=== PATIENT | female | born 1955 | race Caucasian/White ===

== ENCOUNTER 2024-04-16 09:19 | Outpatient (AMB) | payer MEDICARE, SELFPAY ==
--- NOTE | 2024-04-16 09:22 | A.OFFPC_ITS ---
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 Required: No Allergies morphine Allergy (Severe, Verified 04/16/24 10:17) Itching Medication List - Last Reconciled 04/16/24 by Radha Cardona, [facility]- apixaban (Eliquis) 5 mg PO BID CPAP (CPAP Machine/Device) As directed cyclobenzaprine 5 mg PO TID PRN zolpidem ER (Ambien CR) 12.5 mg PO BEDTIME PRN Tobacco use date assessed: 04/16/24 Dental Screening Dental Screen Date: 04/16/24 Did you have a dental visit in the last 12 months?: Yes Did you have a dental problem in the last 6 months where you did not have access to dental care?: No Was dental information given to patient?: Patient has dentist HPI HPI Comments History of Present Illness Details 58 y/o F with afib with secondary hyperc oaguable disorder, hx of pericarditis, chronic low back pain, JESUS on CPAP, insomnia, caregiver role strain, normal pressure glaucoma , diverticulosis, obesity s/p rudolph, gastric bypass, kidney stone, status post D&C family hx: mom with htn, dad cvd and etoh, pgm htn, pgf hld, sibling cvd Social: to , DD; moved from [place] to live near [facility] and grandchildren; 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 No records avail. Moved from [place]. She has a known history of sleep apnea, which requires CPAP management; however, her account is currently inactive. She experienced a past episode of pericarditis, during which atrial fibrillation was diagnosed; the cause of pericarditis remains unknown. Her atrial fibrillation presents intermittently, with episodes of palpitations, which do not always coincide with appointments or require an event monitor. She has normal pressure glaucoma and requires an ophthalmology referral. In her medical history, she was diagnosed with uterine cancer around 5025-3519 following recurrent episodes of bleeding during menopause, leading to a hysterectomy. Post-operative pathology confirmed a very early stage of uterine cancer, but post-treatment with the oncologist indicated no further cancer m anagement was deemed necessary. She experienced type 2 diabetes that subsequently resolved following gastric bypass surgery. Her mental health is characterized by chronic depression and anxiety, ex acerbated by recent stressors, including relocating and caring for her partner with dementia. Despite these challenges, she has periods of high anxiety but denies hopelessness or suicidal ideation. Her sleep is poor without the use of Ambien. Additionally, she recently experienced acute back pain, which she managed with medication. 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 - Family Status: Lives with her partner; actively caring for her partner with dementia. History of extensive caregiving for family members. - Substance Use: Minimal alcohol use, dr kwan approximately once a month. - Housing: Recently relocated; currently living with her daughter due to financial constraints. Exam Awake alert NAD RRR LS CTAB BLE no edema, skin intact, hairless Mood and affect appropriate Discussion Notes I discussed with the patient her current medical conditions and the need for ongoing management. We talked about her atrial fibrillation and the importance of a cardiology referral to the team at [facility]. Additionally, I explained the need for ophthalmology follow-up for her normal pressure glaucoma, with a referral to [facility] provided. The need for CPAP management was addressed, and a plan to reactivate her [place] account was initiated. We discussed her mental health, noting her moderate anxiety, and the pressures of caregiving. I highlighted the support available through the [employer] and encouraged her to seek caregiver support. We reviewed her recent back pain experience and the potential need for spine evaluation should symptoms persist or worsen. The conversation included her history of uterine cancer and resolved diabetes, aiming to maintain her health status through routine lab screenings and follow-ups. Patient Instructions - Follow up with cardiology at [facility] for atrial fibrillation management. - Contact [facility] for an ophth almology appointment regarding glaucoma. - Re-establish CPAP management account w skylar Floyd and proceed with acquiring necessary equipment. - Explore available caregiver support re sources through the [employer]. - Monitor back pain and seek further della luation if symptoms worsen. - Follow up on routine labs and return f or any abnormal results. Plan - Management of Atrial Fibrillation: Ref erral to cardiology for comprehensive management and potential further investigation or treatment options. - Management of Glaucoma: Referral to op hthalmology for ongoing assessment and treatment. - Sleep Apnea: Apply for CPAP account re activation with [employer] and ensure access to necessary equipment. - Depression and Anxiety: Encouragement to seek caregiver support through available associations. Monitor mental health status and consider counseling if anxiety and depression symptoms persist. - Blood Work: Routine lab work to establ kaushik a current baseline of health for further management decisions. - Follow-up arrangement for continuity o f care and address any emerging health concerns by the next scheduled appointment. Patient was informed and verbally consented to the use of an ambient scribe for clinic note documentation during this visit. Total time spent caring for the patient today was 60 minutes. This includes time spent before the visit reviewing the chart, time spent during the visit, and time spent after the visit on documentation, reviewing laboratory results, diagnostic imaging, medications, performing a medically necessary evaluation, counseling on diagnoses, care coordination, ordering appropriate tests, ordering appropriate medications, review of tests performed by other providers, reporting test results with the patient, communication with other healthcare providers. [facility] Medical History (Updated 04/16/24 @ 17:13 by BALA Roca-LIZBETH) Lower back pain Sleep apnea Menopause Kidney stones Afib Uterine cancer Surgical History (Updated 04/16/24 @ 10:21 by BALA Roca-LIZBETH) History of bariatric surgery History of hysterectomy Family History (Updated 04/16/24 @ 09:32 by Jerry Dejesus MA) Father Substance abuse Cardiovascular disease Paternal Grandfather Diabetes Mother Hypertension Paternal Grandmother Hypertension Social History (Updated 04/16/24 @ 09:30 by Jerry Dejesus MA) Household Members: Family Housing: Apartment Are you a primary director long term care to a significant other at home: No Do you presently have visiting nurse or other home services: No Alcohol intake: current Alcohol intake frequency: a few times a month Patient Tobacco Use Status: Never used Tobacco e-Cigarette/Vaping Use: Never Used Second Hand Smoke Exposure: No Current occupational status: retired Cognitive needs: No Hearing needs: No Vision needs: Yes (wear glasses) Questionnaire PHQ-9 Over the last 2 weeks, how often have you been bothered by any of the following problems? 1. Little interest or pleasure in doing things: more than half the days 2. Feeling down, depressed, or hopeless: not at all 3. Trouble falling or staying asleep, or sleeping too much: nearly every day 4. Feeling tired or having little energy: nearly every day 5. Poor appetite or overeating: not at all 6. Feeling bad about yourself - or that you are a failure or have let yourself or your family down: several days 7. Trouble concentrating on things, such as reading the newspaper or watching t elevision: not at all 8. Moving or speaking so slowly that other people could have noticed. Or the opposite - being so fidgety or restless that you have been moving around a lot more than usual: not at all 9. Thoughts that you would be better off or of hurting yourself in some way: not at all Total score: 9 Depression Screening Interpretation: Positive Depression Screening Follow-up: Existing condition Depression Screening Done: Yes 57699 - PHQ-9 Billing: Yes Source: Developed by Drs. Julito Chen, Prachi Lara, Alexey Lowry and colleagues, with an educational stas from [employer]. Thrive Questionnaire Date Thrive assessed: 04/16/24 I am a: Patient What is your living situation today?: I have a steady place to live Within the past 12 months, did the food you bought not last and you didn't have the money to get more?: Never true Within the past 12 months, did you worry whether your food would run out before you got money to buy more?: Never true Do you have trouble paying for medicines?: No Do you have trouble getting transportation to medical appointments?: No Do you have trouble paying your heating and electricity bill?: No Do you have trouble taking care of your child, family member or friend?: Yes Do you have trouble with day-to-day activities such as bathing, preparing meals, shopping, managing finances, etc.?: No Are you currently unemployed and looking for a job?: No Are you interested in more education?: No Please select the resources that you would like help with: Care for elder or disabled Currently or been in a relationship where the following occur: No concerns reported THRIVE Score: 0 AUDIT C Alcohol Use Questionnaire (AUDIT-C) 1. How often do you have a drink containing alcohol?: Monthly or less 2. How many drinks containing alcohol do you have on a typical day when you are drinking?: 1 or 2 3. How often do you have six or more drinks on one occasion?: Never Total Score: 1 Score Reviewed/Action Taken: Yes GORDON-7 AMB Questionnaire GORDON-7 Date GORDON - 7 assessed: 04/16/24 Feeling nervous, anxious, or on edge: 2 = More than half the days Not being able to stop or control worryin = More than half the days Worrying too much about different things: 2 = More than half the days Trouble relaxin = Several days Being so restless that it is hard to sit still: 0 = Not at all Becoming easily annoyed or irritable: 2 = More than half the days Feeling afraid as if something awful might happen: 1 = Several days Total GORDON-7 score (0-4 normal; 5-9 mild; 10-14 moderate; 15-21 severe): 10 Source: Developed by Drs. Julito Chen, Prachi Lara, Alexey Lowry and colleagues, with an educational stas from [employer]. GORDON-7 Assessment Billing GORDON-7 Assessment Tool: GORDON-7 Assessment 50528 Physical exam (Primary Care) Vital Signs: Last Vital Signs Temp 97.1 F 04/16/24 09:34 Pulse 82 04/16/24 09:34 Resp 12 04/16/24 09:34 BP 122/70 04/16/24 09:34 Pulse Ox 98 04/16/24 09:34 Oxygen Delivery Method Room Air 04/16/24 09:34 BMI result Body Mass Index 32.9 BMI Assessment/Plan discussion: High BMI High, discussed plan: lifestyle Tobacco/Smoking Status: Tobacco use Status Tobacco use date assessed 04/16/24 04/16/24 09:36 Patient Tobacco Use Status Never used Tobacco 04/16/24 09:36 e-Cigarette/Vaping Use Never Used 04/16/24 09:36 PHQ-9: PHQ-9 Score PHQ-9: Total score 9 01/27/25 10:32 Depression Screening Interpretation: Positive Depression Screening Follow-up: Existing condition Thrive Assessment: Date of Thrive Assessment Date Thrive assessed 04/16/24 04/16/24 09:25 Currently or been in a relationship where the following occur: No concerns reported Coding Level of Care Code New Pt Level 5 (63281) Complex EM visit Add On G2211 Diagnoses Paroxysmal atrial fibrillation I48.0 Atrial fibrillation type: paroxysmal History of pericarditis Z86.79 Low-tension glaucoma of both eyes, unspecified glaucoma stage H40.1230 Laterality: bilateral Glaucoma stage: stage unspecified Laboratory exam ordered as part of routine general medical examination Z00.00 Malignant neoplasm of uterus, unspecified site C55 Malignant neoplasm of uterus location: unspecified site of uterus S/P gastric bypass Z98.84 Caregiver role strain Z63.8 Secondary hypercoagulability disorder D68.69 Chronic midline low back pain without sciatica M54.50; G89.29 Back pain laterality: midline Sciatica presence: without sciatica JESUS on CPAP G47.33 Psychophysiological insomnia F51.04 Insomnia type: psychophysiologic GORDON (generalized anxiety disorder) F41.1 History of type 2 diabetes mellitus Z86.39 Diverticulosis K57.90 BMI 33.0-33.9,adult Z68.33 Class 1 obesity with body mass index (BMI) of 33.0 to 33.9 in adult E66.811; Z68.33 Additional Codes GORDON-7 Assessment Billing - GORDON-7 Assessment Tool: GORDON-7 Assessment 20989 ([id number]) PHQ-9 - 71235 - PHQ-9 Billing: Yes ([id number]) Assessment & Plan Assessment & Plan (1) Afib: Comment: With secondary hypercoagulable state Code(s): I48.91 - Unspecified atrial fibrillation Category: Medical Qualifiers: Atrial fibrillation type: paroxysmal Qualified Code(s): I48.0 - Paroxysmal atrial fibrillation (2) History of pericarditis: Code(s): Z86.79 - Personal history of other diseases of the circulatory system Category: Medical (3) Normal pressure glaucoma: Code(s): H40.1290 - Low-tension glaucoma, unspecified eye, stage unspecified Category: Medical Qualifiers: Laterality: bilateral Glaucoma stage: stage unspecified Qualified Code(s): H40.1230 - Low-tension glaucoma, bilateral, stage unspecified (4) Laboratory exam ordered as part of routine general medical examination: Code(s): Z00.00 - Encounter for general adult medical examination without abnormal findings Category: Medical (5) Uterine cancer: Comment: s/p RUDOLPH in [place] (2018) No additional treatments, considered in remission. Code(s): C55 - Malignant neoplasm of uterus, part unspecified Category: Medical Qualifiers: Malignant neoplasm of uterus location: unspecified site of uterus Qualified Code(s): C55 - Malignant neoplasm of uterus, part unspecified (6) S/P gastric bypass: Code(s): Z98.84 - Bariatric surgery status Category: Surgical (7) Caregiver role strain: Code(s): Z63.8 - Other specified problems related to primary support group Category: Medical (8) Secondary hypercoagulability disorder: Comment: Due to AFib on Eliquis Code(s): D68.69 - Other thrombophilia Category: Medical (9) Chronic low back pain: Code(s): M54.50 - Low back pain, unspecified; G89.29 - Other chronic pain Category: Medical Qualifiers: Back pain laterality: midline Sciatica presence: without sciatica Qualified Code(s): M54.50 - Low back pain, unspecified; G89.29 - Other chronic pain (10) JESUS on CPAP: Code(s): G47.33 - Obstructive sleep apnea (adult) (pediatric) Category: Medical (11) Insomnia: Code(s): G47.00 - Insomnia, unspecified Category: Medical Qualifiers: Insomnia type: psychophysiologic Qualified Code(s): F51.04 - Psychophysiologic insomnia (12) GORDON (generalized anxiety disorder): Code(s): F41.1 - Generalized anxiety disorder Category: Medical (13) History of type 2 diabetes mellitus: Code(s): Z86.39 - Personal history of other endocrine, nutritional and metabolic disease Category: Medical (14) Diverticulosis: Code(s): K57.90 - Diverticulosis of intestine, part unspecified, without perforation or abscess without bleeding (15) BMI 33.0-33.9,adult: Code(s): Z68.33 - Body mass index [BMI] 33.0-33.9, adult Category: Medical (16) Class 1 obesity with body mass index (BMI) of 33.0 to 33.9 in adult: Code(s): E66.811 - Obesity, class 1; Z68.33 - Body mass index [BMI] 33.0-33.9, adult Category: Medical Plan . Orders: Orders Comprehensive Met. Panel Today Z00.00 - Encounter for general adult medical examination without abnormal findings Hemoglobin A1c Today Z00.00 - Encounter for general adult medical examination without abnormal findings Complete Blood Count no Diff Today Z00.00 - Encounter for general adult medical examination without abnormal findings Lipid Panel Today Z00.00 - Encounter for general adult medical examination without abnormal findings Microalbumin, Random (w Creat) Today Z00.00 - Encounter for general adult medical examination without abnormal findings TSH reflex Free T4 Today Z00.00 - Encounter for general adult medical examination without abnormal findings Vitamin B12 and Folate Today Z00.00 - Encounter for general adult medical examination without abnormal findings Vitamin D 25-OH Total Today Z00.00 - Encounter for general adult medical examination without abnormal findings Referrals Ophthalmology Referral H40.1290 - Low-tension glaucoma, unspecified eye, stage unspecified Cardiology Referral I48.91 - Unspecified atrial fibrillation, Z86.79 - Personal history of other diseases of the circulatory system Patient Instructions: Walk-In Care (Urgent Care): We Make it Easy Walk-in for urgent medical issues such as: ? Seasonal Allergies ? Insect Bites ? Cough ? Diarrhea ? Acute Asthma Attacks ? Back, Knee or Joint Pain ? Ear Infection ? Fever without a Rash ? Headaches ? Nausea ? [place] [facility], Rash or Skin Irritation ? Sore Throat ? Sports Physicals ? Vomiting Most insurances are accepted. Patients do not need to be part of the [facility] to seek care at the walk-in clinic. Locations [facility] , [place] [address] ? [phone] [facility] in [place] provides services to ages 18 and over. Open Tuesday-Tuesday: 8 a.m. to 5 p.m. and Tuesday: 9 a.m. to 3 p.m.* *Hours may vary due to staffing availability. To confirm Walk-In Care hours in [place], please call [phone]. [address] [facility], [place] [address] ? [phone] [facility] in [place] provides services to ages 12 and over. Open Tuesday-Tuesday: 8 a.m. to 5 p.m. Hours may vary due to staffing availability. To confirm Walk-In Care hours in [place], please call [phone]. LABORATORY SERVICES: [facility] Lab ? Primary Location [address] [place] [address] Tuesday through Tuesday 6:00 AM ? 5:00 PM Tuesday 7:00 AM ? 11:00 AM* [phone] The [facility] Lab is centrally located near the front entrance of the [facility] for easy outpatient access. Convenient parking is provided for outpatients. *Hours may vary due to staffing availability. To confirm Laboratory hours for any location, please call [phone]. Offsite Location For your convenience, we offer offsite laboratory draw stations at the following locations: [address] [place] [address] ? [address], [address] Tuesday through Tuesday 7:30 AM ? 1:00 PM* [phone] *Hours may vary due to staffing availability. To confirm Laboratory hours for any location, please call [phone]. [place] ? [address] Tuesday through Tuesday 6:00 AM ? 3:30 PM* Tuesday 6:30 AM ? 3 PM* [phone] *Hours may vary due to staffing availability. To confirm Laboratory hours for any location, please call [phone] [place] [address] Tuesday through Tuesday 7:30 AM ? 4:00 PM* [phone] *Hours may vary due to staffing availability. To confirm Laboratory hours for any location, please call [phone] [place] [address] Tuesday through 9:00 AM ? 4:00 PM* *Hours may vary due to staffing availability. To confirm Laboratory hours for any location, please call [phone]. Appointments are not necessary. Walk-ins are welcome. Like all the departments throughout the [facility], our Lab undergoes frequent reviews to ensure the quality and accuracy of test results, and our staff takes special pride in its status as a nationally accredited facility. Patient Portal: ONE PATIENT. ONE RECORD. BETTER CARE. [facility] has a fully integrated, cutting- edge mobile electronic health information system that has revolutionized the way we care for our patients and manage our organization. This system improves communication and coordination enabling us to provide safe, higher-quality care, and an overall positive experience for staff and patients. Our first priority, as always, is to deliver the highest quality care possible. The system is running in the background supporting that priority. This portal is for all [facility] services and practices. If you are experiencing any technical difficulties with enrolling or logging into the Patient Portal please complete the [facility] Patient Portal Technical Support Form. [facility] now offers a new secure on-line interactive tool for patients to review their health information ? Patient Portal. This interactive web portal will enable patients and their families to take an active role in their care by providing easy, secure access to their health information via the internet. The Patient Portal provides patients with instant access to their health inf ormation, including laboratory results, medications, allergies, demographic information, visit history, and more. In addition to managing their own care, parents and health care proxies with authorized consent will appreciate the ability to access the records of those individuals for whom they provide care. Please note: if you wish to gain access (Proxy) to another patient?s portal, you will be required to come to the Medical Records Department in person at [facility]. Both the patient giving proxy access and the proxy will need to provide photo identification and complete the appropriate authorization. The Patient Portal also allows track their appointments online. The [facility] Patient Portal also saves patients time by allowing them to submit updates to their demographic and contact information prior to their visits. Portal email notifications will also alert patients to any new activity on their portal, such as test results and new appointments. In order to initially enroll in the [facility] Patient Portal, you will need to enter some required information including the following: ? your [facility] Medical Record number ? your personal home email address ? name ? date of Please note: In order to enroll in the [facility] Patient Portal, we need to have your email address on file in your electronic medical record. The email address needs to be specific for one person (yourself) in order for your Portal enrollment to be successful. You can update your email address in person with our Registration staff when you are registering for a hospital visit. Otherwise, you will need to come to the Health Information Management (Medical Records) Department at [facility]. We are open from Tuesday ? Tuesday from 7:30 a.m. ? 4:30 p.m. You will be required to present a photo id. Once you have successfully enrolled in the Patient Portal, you will receive a one-time user id and password for the Portal, sent to your email address. This will allow you to log into the Patient Portal within 99 hrs and reset your own logon id and password, and define personal security questions. Once your permanent login and password have been set, you can log into the [facility] Patient Portal at any time via the blue button above or from the Portal Logon button on any page of the [facility] website. [facility] and [facility] encourage all of our patients to enroll in Patient Portal as it presents a valuable opportunity for patients and their families to actively participate in their care and stay healthy Welcome to [facility]. We look forward to working with you.
[2024-04-16 09:34] VITALS: BP 122/70; PULSE 82; RESP 12; TEMP 36.2; O2SAT 98; BMI 32.9
== END 2024-04-16 10:37 | disposition home or self-care (01) ==
PROVIDERS: PCP Nurse Practitioner Family; Visit Provider Nurse Practitioner Family
DX: I48.0 Paroxysmal atrial fibrillation (principal); C55 Malignant neoplasm of uterus, part unspecified; D68.69 Other thrombophilia; Z86.79 Personal history of other diseases of the circulatory system; H40.1230 Low-tension glaucoma, bilateral, stage unspecified; Z98.84 Bariatric surgery status; Z63.8 Other specified problems related to primary support group; M54.50 Low back pain, unspecified; G89.29 Other chronic pain; G47.33 Obstructive sleep apnea (adult) (pediatric); F51.04 Psychophysiologic insomnia; F41.1 Generalized anxiety disorder

== ENCOUNTER 2024-04-16 10:59 | Outpatient (REF) | payer MEDICARE, SELFPAY ==
[2024-04-16 14:38] LABS: Hematocrit 42.3 % (37.0-47.0); Hemoglobin 14.4 g/dl (12.0-16.0); Mean Corpuscular Hemoglobin 31.4 pg (27.0-33.0); Mean Corpuscular Volume 92.4 fL (80.0-98.0); Mean Platelet Volume 10.5 fL (9.4-12.3); Platelet Count 317 X10*3/uL (160-400); Red Blood Count 4.58 X10*6/uL (4.20-5.50); Red Cell Distribution Width 12.2 % (11.0-16.0); White Blood Count 5.1 X10*3/uL (4.8-10.8)
[2024-04-16 14:42] LABS: Estimated Average Glucose 117 mg/dL; Hemoglobin A1C 139.4999 umol/L; Hemoglobin A1c % 5.7 % (<6.0); Total Hemoglobin (HGBA1C) 3646.0427 umol/L
[2024-04-16 15:14] LABS: Microalbumin Urine < 5.0 mg/L
[2024-04-16 15:14] LABS: Alanine Aminotransferase 35 U/L (0-31); Albumin Level 4.2 g/dL (3.5-5.0); Anion Gap 14 (12-20); Aspartate Amino Transferase 44 U/L (5-31); Bilirubin Total 0.4 mg/dL (0.0-1.0); Blood Urea Nitrogen 16 mg/dL (9-16); Calcium 9.5 mg/dL (8.4-10.2); Carbon Dioxide 25 mmol/L (22-29); Chloride 107 mmol/L (96-108); Cholesterol 216 mg/dL (<200); Estimated Glomerular Filt Rate > 60; Glucose Random 91 mg/dL (60-115); HDL Cholesterol 53 mg/dL (>40); LDL Cholesterol Calculated 134 mg/dL (<100); Potassium 4.5 mmol/L (3.3-5.1); Sodium 141 mmol/L (135-145); Total Protein 7.8 g/dL (6.5-8.0); Triglycerides 145 mg/dL (<150)
[2024-04-16 15:26] LABS: TSH reflex Free T4 2.12 uIU/mL (0.32-4.0); Vitamin D 25-OH Total 64.8 ng/mL (>30)
[2024-04-16 15:35] LABS: Folate 14.4 ng/mL (> or = 4.0); Vitamin B12 460 pg/mL (200-900)
[2024-04-16 15:45] LABS: Alkaline Phosphatase 81 U/L (39-117)
== END 2024-04-16 11:00 | disposition home or self-care (01) ==
LOC: HO.WFDLDS 10:59
PROVIDERS: Visit Provider Nurse Practitioner Family
DX: Z00.00 Encounter for general adult medical examination without abnormal findings (principal); I48.0 Paroxysmal atrial fibrillation; H40.1230 Low-tension glaucoma, bilateral, stage unspecified; D68.69 Other thrombophilia; G89.29 Other chronic pain; M54.50 Low back pain, unspecified; G47.33 Obstructive sleep apnea (adult) (pediatric); F51.04 Psychophysiologic insomnia; F41.1 Generalized anxiety disorder; K57.90 Diverticulosis of intestine, part unspecified, without perforation or abscess without bleeding; E66.811 Obesity, class 1; Z68.33 Body mass index [BMI] 33.0-33.9, adult; Z85.42 Personal history of malignant neoplasm of other parts of uterus; Z86.39 Personal history of other endocrine, nutritional and metabolic disease; Z86.79 Personal history of other diseases of the circulatory system; Z79.01 Long term (current) use of anticoagulants; Z90.710 Acquired absence of both cervix and uterus; Z98.84 Bariatric surgery status; Z63.8 Other specified problems related to primary support group
CPT/HCPCS: 36415; 80053; 80061; 82043; 82306; 82570; 82607; 82746; 83036; 84443; 85027; 96127; 99202

== ENCOUNTER 2024-05-04 12:44 | Outpatient (AMB) | payer MEDICARE, SELFPAY ==
--- NOTE | 2024-05-04 12:52 | A.OFFPC_ITS ---
Vital Signs 05/04/24 12:56 Height 5 ft 9.5 in Weight 226 lb 2 oz BMI 32.9 BP 122/76 Blood Pressure Location Lt brachial Position Sitting Respiration 12 Pulse 61 Pulse Source Pulse Oximeter Temp 96.9 F Temp Source Oral Pulse Oximetry (%) 97 Oxygen Delivery Method Room Air Intake Visit Reasons: 30 min 05/04/24 cont est care Intake Note: follow up to continue care Business Operations Coordinator Required: No Allergies morphine Allergy (Severe, Verified 05/04/24 13:22) Itching Medication List - Last Reconciled 05/04/24 by Radha Cardona, [employer] RECOVERY OPERATOR-BC apixaban (Eliquis) 5 mg PO BID CPAP (CPAP Machine/Device) As directed cyclobenzaprine 5 mg PO TID PRN zolpidem ER (Ambien CR) 12.5 mg PO BEDTIME PRN Tobacco use date assessed: 05/04/24 Fall risk assessment: No Falls in past year Last assessed Fall Risk: 05/04/24 Dental Screening Dental Screen Date: 05/04/24 Did you have a dental visit in the last 12 months?: Yes Did you have a dental problem in the last 6 months where you did not have access to dental care?: No Was dental information given to patient?: Patient has dentist HPI HPI Comments History of Present Illness Details 68 y/o F with afib with secondary hyperc oaguable disorder, hx of pericarditis, chronic low back pain, JESUS on CPAP, insomnia, caregiver role strain, normal pressure glaucoma , diverticulosis, obesity, MDD, GORDON Surgical hx: s/p rudolph, gastric bypass, kidney stone, status post D&C family hx: mom with htn, dad cvd and etoh, pgm htn, pgf hld, sibling cvd Social: to , DD; moved from [place] to live near [facility] and grandchildren; 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 Health Maintenance: * Colon age 60, repeat age 70 * Mammo 2022, ordered today * DEXA never had one, ordered today * PAP s/p RUDOLPH referred to works manager given hx * Tdap flu 2023, shingles 2021 Specialists: Optho Cards Results: Labs from 04/16/2024 show a normal CBC, normal electrolytes, normal renal function, hemoglobin A1c prediabetic 5.7%, elevated LFTs AST of 44, ALT 35, normal alk phos, total cholesterol 216, LDL 134, HDL 53, triglycerides 145, normal B12, normal vitamin-D, normal TSH, normal folate and normal urine microalbumin creatinine ratio History of Present Illness - The patient is a 68-year-old female pr esenting with routine follow-up. - A diagnosis of Atrial Fibrillation is being managed with Eliquis, without any current issues reported. Cards referral active, appt pending - She has Type 2 Diabetes Mellitus manag ed through a diet following gastric bypass surgery, with recent A1c levels observed at 5.7%. - Elevated liver function tests were not ed, possibly dietary-related, and correlated with findings of Hyperlipidemia, with total cholesterol at 216 mg/dL and LDL at 134 mg/dL. - She experiences chronic back pain for which she requests cyclobenzaprine. - Reports anxiety and depression due to recent life changes and caregiving duties. -hx of uterine cancer Exam Awake alert NAD RRR LS CTAB Abd soft, nontender BLE no edema, skin intact, hairless, decreased PP bilat Mood and affect appropriate Discussion Notes During the visit, I addressed the patient's concerns regarding elevated cholesterol and liver function, explaining potential dietary causes and suggesting the use of Florence-Graham bergamot as a natural supplement, which has had positive effects in similar cases. I noted the patient's back pain and refilled cyclobenzaprine to manage this. Due to the history of Type 2 Diabetes, I reminded the patient of the importance of regular follow-ups. I provided guidance related to her shared current stressors, suggesting resources for caregiver assistance which may alleviate some responsibilities. I also discussed the importance of monitoring for any uterine-related symptoms given her history and considering a gynecological review. Finally, we scheduled a follow-up in six months to repeat metabolic and liver panels and continue monitoring chronic conditions. Assessment and Plan 68-year-old female with a history of Typ e 2 Diabetes Mellitus and chronic conditions, presenting for a routine follow-up. Cholesterol and liver function require monitoring due to moderate elevations, potentially linked to dietary factors and post-gastric surgery status. Current management of back pain with cyclobenzaprine continues, and emotional stress due to life events is observed and addressed. Follow-up for uterine cancer surveillance is considered prudent moving forward. 1. Hyperlipidemia Continuous surveillance with encouragement for lifestyle adjustments; discussed potential of natural supplements aiding lipid control. Introduction of Florence-Graham bergamot supplement encouraged; review lipid profile in six months, alongside dietary management. 2. Atrial Fibrillation Continue anticoagulation management with Eliquis, ensuring adequate supply and adherence to regimen. FU with Cards Back Pain Cyclobenzaprine prescribed for ongoing symptomatic relief, with emphasis on physical activity. Post-Gastric Surgery Status Monitor for nutritional deficiencies, maintain current supplementation regimen. ^ LFT: Observation advised concerning dietary impact; re-evaluate with liver function tests in six months. Type 2 Diabetes Mellitus Maintain diet-based management with periodic monitoring; A1c stable at 5.7%, plan for follow-up labs in six months. Encounter for follow-up examination after completed treatment for malignant neoplasm Z08 Suggested gynecologic evaluation due to historical concerns, awaiting professional follow-up scheduling. Patient Instructions - Continue taking Eliquis as prescribed for Atrial Fibrillation. - Maintain dietary control for managing Type 2 Diabetes and monitor blood glucose levels. - Start taking Florence-Graham bergamot to help m anage cholesterol levels; recheck lipid profile in six months. - Use cyclobenzaprine as needed for back pain relief. - Engage in regular physical activity as tolerated. - Schedule an appointment with a gynecol ogist for evaluation. - Repeat liver and metabolic health labs in six months. - Seek help from local elder services fo r caregiver support if needed. Consent Informed consent was obtained from the patient for the management plan, including the use of Florence-Graham bergamot as a complementary treatment for hyperlipidemia, understanding its potential benefits and absence of significant side effects. Consent extended towards referral for gynecological evaluation, should surveillance or further preventive actions be deemed necessary in light of uterine cancer history. Patient was informed and verbally consented to the use of an ambient scribe for clinic note documentation during this visit. Total time spent caring for the patient today was 40 minutes. This includes time spent before the visit reviewing the chart, time spent during the visit, and time spent after the visit on documentation, reviewing laboratory results, diagnostic imaging, medications, performing a medically necessary evaluation, counseling on diagnoses, care coordination, ordering appropriate tests, ordering appropriate medications, review of tests performed by other providers, reporting test results with the patient, communication with other healthcare providers. [facility] Medical History (Updated 05/04/24 @ 15:26 by BALA Roca-LIZBETH) Afib Kidney stones Lower back pain Menopause Sleep apnea Uterine cancer Surgical History (Updated 04/16/24 @ 10:21 by BETTE Roca) History of bariatric surgery History of hysterectomy Family History (Updated 04/16/24 @ 09:32 by Jerry Dejesus MA) Father Substance abuse Cardiovascular disease Paternal Grandfather Diabetes Mother Hypertension Paternal Grandmother Hypertension Social History (Updated 04/16/24 @ 09:30 by Jerry Dejesus MA) Household Members: Family Both parents involved: No Caregiver staying overnight: No Housing: Apartment Are you a primary rehab care assistant to a significant other at home: No Do you presently have visiting nurse or other home services: No 75 years or older and lives alone: No Alcohol intake: current Alcohol intake frequency: a few times a month Patient Tobacco Use Status: Never used Tobacco e-Cigarette/Vaping Use: Never Used Second Hand Smoke Exposure: No service: No Current occupational status: retired Cognitive needs: No Hearing needs: No Vision needs: Yes (wear glasses) Questionnaire PHQ-9 Over the last 2 weeks, how often have you been bothered by any of the following problems? 1. Little interest or pleasure in doing things: not at all 2. Feeling down, depressed, or hopeless: not at all 3. Trouble falling or staying asleep, or sleeping too much: more than half the days 4. Feeling tired or having little energy: several days 5. Poor appetite or overeating: several days 6. Feeling bad about yourself - or that you are a failure or have let yourself or your family down: not at all 7. Trouble concentrating on things, such as reading the newspaper or watching television: several days 8. Moving or speaking so slowly that other people could have noticed. Or the opposite - being so fidgety or restless that you have been moving around a lot more than usual: not at all 9. Thoughts that you would be better off or of hurting yourself in some way: not at all Total score: 5 Depression Screening Interpretation: Positive Depression Screening Follow-up: Existing condition Depression Screening Done: Yes 06225 - PHQ-9 Billing: Yes Source: Developed by Drs. Julito Chen, Prachi Lara, Alexey Lowry and colleagues, with an educational stas from [employer]. Thrive Questionnaire Date Thrive assessed: 05/04/24 I am a: Patient What is your living situation today?: I have a steady place to live Within the past 12 months, did the food you bought not last and you didn't have the money to get more?: Never true Within the past 12 months, did you worry whether your food would run out before you got money to buy more?: Never true Do you have trouble paying for medicines?: No Do you have trouble getting transportation to medical appointments?: No Do you have trouble paying your heating and electricity bill?: No Do you have trouble taking care of your child, family member or friend?: Yes Do you have trouble with day-to-day activities such as bathing, preparing meals, shopping, managing finances, etc.?: No Are you currently unemployed and looking for a job?: No Are you interested in more education?: No Please select the resources that you would like help with: Care for elder or disabled Currently or been in a relationship where the following occur: No concerns reported THRIVE Score: 0 AUDIT C Alcohol Use Questionnaire (AUDIT-C) 1. How often do you have a drink containing alcohol?: Monthly or less 2. How many drinks containing alcohol do you have on a typical day when you are drinking?: 1 or 2 3. How often do you have six or more drinks on one occasion?: Never Total Score: 1 Score Reviewed/Action Taken: Yes GORDON-7 AMB Questionnaire GORDON-7 Date GORDON - 7 assessed: 05/04/24 Feeling nervous, anxious, or on edge: 0 = Not at all Not being able to stop or control worryin = Not at all Worrying too much about different things: 0 = Not at all Trouble relaxin = Not at all Being so restless that it is hard to sit still: 0 = Not at all Becoming easily annoyed or irritable: 0 = Not at all Feeling afraid as if something awful might happen: 0 = Not at all Total GORDON-7 score (0-4 normal; 5-9 mild; 10-14 moderate; 15-21 severe): 0 Source: Developed by Drs. Julito Chen, Prachi Lara, Alexey Lowry and colleagues, with an educational stas from [employer]. GORDON-7 Assessment Billing GORDON-7 Assessment Tool: GORDON-7 Assessment 30701 Physical exam (Primary Care) Vital Signs: Last Vital Signs Temp 96.9 F 05/04/24 12:56 Pulse 61 05/04/24 12:56 Resp 12 05/04/24 12:56 BP 122/76 05/04/24 12:56 Pulse Ox 97 05/04/24 12:56 Oxygen Delivery Method Room Air 05/04/24 12:56 BMI result Body Mass Index 32.9 BMI Assessment/Plan discussion: High BMI High, discussed plan: lifestyle Tobacco/Smoking Status: Tobacco use Status Tobacco use date assessed 05/04/24 05/04/24 12:56 Patient Tobacco Use Status Never used Tobacco 05/04/24 12:56 e-Cigarette/Vaping Use Never Used 05/04/24 12:56 PHQ-9: PHQ-9 Score PHQ-9: Total score 5 05/04/24 13:29 Depression Screening Interpretation: Positive Depression Screening Follow-up: Existing condition Thrive Assessment: Date of Thrive Assessment Date Thrive assessed 05/04/24 05/04/24 12:56 Currently or been in a relationship where the following occur: No concerns reported Coding Level of Care Code Est Pt Level 5 (49422) Complex EM visit Add On G2211 Diagnoses Mixed hyperlipidemia E78.2 Hyperlipidemia type: mixed hyperlipidemia Elevated LFTs R79.89 Chronic midline low back pain without sciatica M54.50; G89.29 Back pain laterality: midline Sciatica presence: without sciatica History of type 2 diabetes mellitus Z86.39 JESUS on CPAP G47.33 S/P gastric bypass Z98.84 Menopause Z78.0 GORDON (generalized anxiety disorder) F41.1 Malignant neoplasm of uterus, unspecified site C55 Malignant neoplasm of uterus location: unspecified site of uterus Mild episode of recurrent major depressive disorder F33.0 Major depression episode severity: mild Paroxysmal atrial fibrillation I48.0 Atrial fibrillation type: paroxysmal Additional Codes GORDON-7 Assessment Billing - GORDON-7 Assessment Tool: GORDON-7 Assessment 32750 ([id number]) PHQ-9 - 85112 - PHQ-9 Billing: Yes ([id number]) Assessment & Plan Assessment & Plan (1) HLD (hyperlipidemia): Code(s): E78.5 - Hyperlipidemia, unspecified Category: Medical Qualifiers: Hyperlipidemia type: mixed hyperlipidemia Qualified Code(s): E78.2 - Mixed hyperlipidemia (2) Elevated LFTs: Code(s): R79.89 - Other specified abnormal findings of blood chemistry Category: Medical (3) Chronic low back pain: Code(s): M54.50 - Low back pain, unspecified; G89.29 - Other chronic pain Category: Medical Qualifiers: Back pain laterality: midline Sciatica presence: without sciatica Qualified Code(s): M54.50 - Low back pain, unspecified; G89.29 - Other chronic pain (4) History of type 2 diabetes mellitus: Code(s): Z86.39 - Personal history of other endocrine, nutritional and metabolic disease Category: Medical (5) JESUS on CPAP: Code(s): G47.33 - Obstructive sleep apnea (adult) (pediatric) Category: Medical (6) S/P gastric bypass: Code(s): Z98.84 - Bariatric surgery status Category: Surgical (7) Menopause: Code(s): Z78.0 - Asymptomatic menopausal state Category: Medical (8) GORDON (generalized anxiety disorder): Code(s): F41.1 - Generalized anxiety disorder Category: Medical (9) Uterine cancer: Comment: s/p RUDOLPH in [place] (2018) No additional treatments, considered in remission. Code(s): C55 - Malignant neoplasm of uterus, part unspecified Category: Medical Qualifiers: Malignant neoplasm of uterus location: unspecified site of uterus Qualified Code(s): C55 - Malignant neoplasm of uterus, part unspecified (10) MDD (major depressive disorder), recurrent episode: Code(s): F33.9 - Major depressive disorder, recurrent, unspecified Category: Medical Qualifiers: Major depression episode severity: mild Qualified Code(s): F33.0 - Major depressive disorder, recurrent, mild (11) Afib: Comment: With secondary hypercoagulable state Code(s): I48.91 - Unspecified atrial fibrillation Category: Medical Qualifiers: Atrial fibrillation type: paroxysmal Qualified Code(s): I48.0 - Paroxysmal atrial fibrillation Plan . Orders: Orders MM tomosynthesis screening BI Today Z12.31 - Encounter for screening mammogram for malignant neoplasm of breast XR DEXA axial skeleton Today Z13.820 - Encounter for screening for osteoporosis, Z78.0 - Asymptomatic menopausal state Lipid Panel 6 Months E78.2 - Mixed hyperlipidemia, R79.89 - Other specified abnormal findings of blood chemistry Comprehensive Met. Panel 6 Months E78.2 - Mixed hyperlipidemia, R79.89 - Other specified abnormal findings of blood chemistry Referrals TIE MAN Referral Z12.4 - Encounter for screening for malignant neoplasm of cervix Medications: New cyclobenzaprine 5 mg PO TID PRN 30 tabs 2RF muscle spasm Patient Instructions: Kaity Mayen
[2024-05-04 12:56] VITALS: BP 122/76; PULSE 61; RESP 12; TEMP 36.1; O2SAT 97; BMI 32.9
--- OUTSIDE RECORDS SUMMARY | 2024-05-04 13:06 | XMS_ITS ---
Author Organization [facility] Physician Nancy collazo Address [address] [place] [address] Care Team Providers Care Supervisor Filter Assembly Name Role Phone Missael Pantoja Primary Care Provider [phone] REASON FOR VISIT appt SOCIAL HISTORY Sex Assigned At : Social History Observation Description Sex Assigned At Female Encounters Encounter Location Date Provider Diagnosis [facility] [address] [place] [address] 02/06/2024 Missael Pantoja PLAN OF TREATMENT No Information
--- OUTSIDE RECORDS SUMMARY | 2024-05-04 13:07 | XMS_ITS ---
Author Organization [facility] Physician Nancy collazo Address [address] [facility] [address] [place] [address] Care Team Providers Care Balcony Worker Name Role Phone Missael Pantoja Primary Care Provider REASON FOR VISIT Due Ambien CR MEDICATIONS Medication SIG (Take, Route, Frequency, Duration) Notes Start Date End Date Status Ambien CR 12.5 MG 1 tablet at bedtime as needed MDD 1 Orally Once a day at bedtime as needed for sleep for 90 days [id number] CB 02/23/2024 Active SOCIAL HISTORY Sex Assigned At : Social History Observation Description Sex Assigned At Female Encounters Encounter Location Date Provider Diagnosis [facility] [address] [place] [address] 02/23/2024 Missael Pantoja PLAN OF TREATMENT Medication Medication Name Sig Start Date Stop Date Notes Ambien CR 12.5 MG 1 tablet at bedtime as needed MDD 1 Orally Once a day at bedtime as needed for sleep for 90 days 02/23/2024 [id number] C B
--- OUTSIDE RECORDS SUMMARY | 2024-05-04 13:07 | XMS_ITS ---
Author Organization [facility] Physician Nancy collazo Address [address] [facility] [address] [place] [address] Care Team Providers Care Chief Deputy Sheriff Name Role Phone Missael Pantoja Primary Care [...] Date Provider Diagnosis [facility] Internal Medicine [facility] [address] [place] [address] 04/06/2024 Missael Pantoja PLAN OF TREATMENT Medication Medication Name Sig Start Date Stop Date Notes Betamethasone Dipropionate 0.05 % 1 application Externally Twice a day for 5 days 10/24/2023
== END 2024-05-04 14:17 | disposition home or self-care (01) ==
PROVIDERS: PCP Nurse Practitioner Family; Visit Provider Nurse Practitioner Family
DX: E78.2 Mixed hyperlipidemia (principal); R79.89 Other specified abnormal findings of blood chemistry; M54.50 Low back pain, unspecified; G89.29 Other chronic pain; Z86.39 Personal history of other endocrine, nutritional and metabolic disease; G47.33 Obstructive sleep apnea (adult) (pediatric); Z98.84 Bariatric surgery status; Z78.0 Asymptomatic menopausal state; F41.1 Generalized anxiety disorder; C55 Malignant neoplasm of uterus, part unspecified; F33.0 Major depressive disorder, recurrent, mild; I48.0 Paroxysmal atrial fibrillation

== ENCOUNTER → 2024-05-04 12:44 | Outpatient (BNVA) | payer MEDICARE, SELFPAY | PROVIDERS: PCP Nurse Practitioner Family; Visit Provider Nurse Practitioner Family | DX: E78.2 Mixed hyperlipidemia (principal); R79.89 Other specified abnormal findings of blood chemistry; M54.50 Low back pain, unspecified; G89.29 Other chronic pain; G47.33 Obstructive sleep apnea (adult) (pediatric); F41.1 Generalized anxiety disorder; C55 Malignant neoplasm of uterus, part unspecified; Z78.0 Asymptomatic menopausal state; Z86.39 Personal history of other endocrine, nutritional and metabolic disease | CPT/HCPCS: 96127; 99212 ==

== ENCOUNTER 2024-06-20 12:41 | Outpatient (REF) | payer MEDICARE, SELFPAY ==
--- NOTE | ~2024-06-20 | MM_ITS ---
EXAMINATION: DXA BONE DENSITY AXIAL HISTORY: Estrogen deficiency TECHNIQUE: [employer] Dual energy absorptiometry (DEXA) of the lumbar spine, total left hip, and femoral neck was performed. COMPARISON: There are no prior studies for comparison. FINDINGS: The bone mineral density of the lumbar spine is 1.234 with a T-score of 0.5, and a Z-score of 0.9. This is indicative of normal bone mineral density. The bone mineral density of the left total hip is 1.206 with a T-score of 1.6, and a Z-score of 2.1. This is indicative of normal bone mineral density. The bone mineral density of the left femoral neck is 1.061 with a T-score of 0.2, and a Z-score of 1.0. This is indicative of normal bone mineral density. MM/XR DEXA axial skeleton IMPRESSION: Based on bone mineral density, and according to World Health Organization (WHO) criteria, the diagnosis is consistent with normal bone mineral density. All bone density values are in grams per centimeter squared (g/cm2). Statistically, 68% of repeat scans fall within 1 SD (+/- 0.010 g/cm2 for AP spine L1-L4) and 1 SD (+/- 0.012 g/cm2 for femur total) FRAX is a trademark of the [employer]'s [place] for Metabolic Bone Disease, a World Health Organization (WHO) Collaborating Center. Electronically signed by: Julito Aguillon MD 06/20/2024 02:05 PM EDT
--- OUTSIDE RECORDS SUMMARY | 2024-06-20 15:09 | XMS_ITS ---
Author Organization [facility] Physician Nancy collazo Address [address] [facility] [address] [place] [address] Care Team Providers Care Senior Linux Systems Engineer Name Role Phone Missael Pantoja Primary Care [...] Date Provider Diagnosis [facility] Internal Medicine [facility] [address] [place] [address] 04/06/2024 Missael Pantoja PLAN OF TREATMENT Medication Medication Name Sig Start Date Stop Date Notes Betamethasone Dipropionate 0.05 % 1 application Externally Twice a day for 5 days 10/24/2023
--- OUTSIDE RECORDS SUMMARY | 2024-06-20 15:09 | XMS_ITS ---
Author Organization [facility] Physician Nancy collazo Address [address] [place] [address] Care Team Providers Care Bradley Linebacker Crewmember Name Role Phone Missael Pantoja Primary Care Provider REASON FOR VISIT appt SOCIAL HISTORY Sex Assigned At : Social History Observation Description Sex Assigned At Female Encounters Encounter Location Date Provider Diagnosis Amb[facility] II Internal Medicine [facility] [address] [place] [address] 02/06/2024 Missael Pantoja PLAN OF TREATMENT No Information
--- OUTSIDE RECORDS SUMMARY | 2024-06-20 15:09 | XMS_ITS ---
Author Organization [facility] Physician Nancy collazo Address [address] [facility] [address] [place] [address] Care Team Providers Care Garage Worker Name Role Phone Missael Pantoja Primary Care Provider [phone] REASON FOR VISIT Due Ambien CR MEDICATIONS Medication SIG (Take, Route, Frequency, Duration) Notes Start Date End Date Status Ambien CR 12.5 MG 1 tablet at bedtime as needed MDD 1 Orally Once a day at bedtime as needed for sleep for 90 days [id number] CB 02/23/2024 Active SOCIAL HISTORY Sex Assigned At : Social History Observation Description Sex Assigned At Female Encounters Encounter Location Date Provider Diagnosis [facility] II Internal Medicine [facility] [address] [place] [address] 02/23/2024 Missael Pantoja PLAN OF TREATMENT Medication Medication Name Sig Start Date Stop Date Notes Ambien CR 12.5 MG 1 tablet at bedtime as needed MDD 1 Orally Once a day at bedtime as needed for sleep for 90 days 02/23/2024 [id number] C B
== END 2024-06-20 12:42 | disposition home or self-care (01) ==
LOC: HO.MAMMO 12:41
PROVIDERS: Visit Provider Nurse Practitioner Family
DX: Z12.31 Encounter for screening mammogram for malignant neoplasm of breast (principal); Z13.820 Encounter for screening for osteoporosis; Z78.0 Asymptomatic menopausal state
CPT/HCPCS: 77063; 77067; 77080

== ENCOUNTER → 2024-06-20 13:00 | Outpatient (BNV) | payer MEDICARE, SELFPAY | PROVIDERS: Visit Provider Radiology Diagnostic Radiology | DX: E28.39 Other primary ovarian failure (principal) | CPT/HCPCS: 77080 ==

== ENCOUNTER 2024-08-23 09:41 | Outpatient (AMB) | payer MEDICARE, SELFPAY ==
--- NOTE | 2024-08-23 09:52 | A.OFFVIS_ITS ---
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 She is a pleasant 68-year-old woman with prior history of obesity status post gastric bypass surgery, diabetes which is not diet controlled, history of atrial fibrillation when she was admitted with sudden- onset chest pain syndrome which she was labeled as pericarditis. She does not recall if she had any significant ischemic workup at that point time. However since then she has not had any sustained documented episodes of atrial fibrillation. She has intermittent symptoms of palpitation but this is never been labeled as atrial fibrillation although feels like she might have atrial fibrillation. She says she is still gets episodes of palpitations but these are short lasting and episodic and without any clear triggers. She does use CPAP regularly still. She does not have any history of hyperlipidemia. She says she is very active and functional. Denies any exertional chest pain or shortness of breath. Denies any orthopnea, PND, leg edema. [facility] Medical History Paroxysmal atrial fibrillation Afib Lower back pain Sleep apnea Menopause Kidney stones Uterine cancer Surgical History History of bariatric surgery History of hysterectomy Family History Father Substance abuse Cardiovascular disease Paternal Grandfather Diabetes Mother Hypertension Paternal Grandmother Hypertension Social History Household Members: Family Both parents involved: No Caregiver staying overnight: No Housing: Apartment Are you a primary respiratory care specialist to a significant other at home: No Do you presently have visiting nurse or other home services: No 75 years or older and lives alone: No Alcohol intake: current Alcohol intake frequency: a few times a month Patient Tobacco Use Status: Never used Tobacco e-Cigarette/Vaping Use: Never Used Second Hand Smoke Exposure: No service: No Current occupational status: retired Cognitive needs: No Hearing needs: No Vision needs: Yes (wear glasses) Review of Systems Const Denies chills, Denies daytime sleepiness, Denies fatigue, Denies fever(s), Denies frequent falls, Denies poor appetite, Denies snoring, Denies stops breathing during sleep, Denies weakness, Denies weight gain and Denies weight loss Eyes Denies loss of vision ENT Denies dizziness and Denies hearing loss Card Denies chest pain, Denies claudication, Denies leg edema, Denies lightheadedness, Denies palpitations, Denies dyspnea, Denies dyspnea on exertion and Denies orthopnea Resp Denies cough, Denies excessive phlegm production, Denies dyspnea, Denies dyspnea on exertion, Denies snoring and Denies wheezing GI Denies abdominal pain, Denies hematochezia, Denies change in bowel habits, Denies nausea and Denies vomiting Denies urinary frequency and Denies dysuria Musc Denies arthralgias, Denies muscle weakness, Denies numbness and Denies other (frequent falls) Skin/Breast Denies nail changes and Denies rash Neuro Denies Abnormal speech present, Denies dizziness, Denies frequent falls, Denies loss of vision, Denies memory loss, Denies numbness and Denies weakness Psych Denies depression and Denies memory loss Endo Denies fatigue and Denies palpitations Oniel/Lymph Reports easy bruising and Reports other (anemia) Aller/Immun Denies wheezing Physical Exam Vital Signs: Last Vital Signs Pulse 63 08/23/24 09:55 BP 120/80 08/23/24 09:55 BMI result Body Mass Index 34.3 Const General: cooperative, comfortable, no acute distress, alert, awake, Physically active and well groomed Nutritional Appearance: obese Orientation/consciousness: patient oriented x3 Limitations: no limitations HEENT Head: Yes normocephalic and Yes atraumatic Neck Neck: Yes trachea midline, Yes supple and Yes no JVD Resp Effort & Inspection: normal respiratory effort Auscultation: clear to auscultation bilaterally Cardio Jugular venous distension: no JVD Palpation: normal PMI Rate: regular rate Rhythm: regular rhythm Heart sounds: S1 normal heart sound present, S2 normal heart sound present, no click, no gallops, no murmurs and no rubs GI Auscultation: normal bowel sounds Skin General skin exam: no rashes or lesions noted Neuro General: patient oriented x3 and no focal motor deficits Speech: No Abnormal speech present Extrem General: Yes no clubbing, cyanosis or edema Psych Appearance: grossly normal Office Procedures EKG Details: EKG shows normal sinus rhythm with low-voltage QRS with nonspecific STT wave changes [id number], Complete Assessment & Plan Assessment & Plan (1) Paroxysmal atrial fibrillation: Code(s): I48.0 - Paroxysmal atrial fibrillation Category: Medical Plan: Paroxysmal atrial fibrillation in this elderly woman with prior history with intermittent symptoms of palpitation which could represent AFib. I have suggested her to invest in a smart phone based EKG device. This will help us c onfirm presence of atrial fibrillation. Although she currently he is not symptomatic enough with no life-limiting symptoms should require further therapy although I think she would benefit from rhythm control approach.CHADSVASc score of 2-3. I would continue full oral anticoagulation, currently on Eliquis which she has tolerated. Semi annual renal function test should be pursued. Avoidance of stimulants was discussed. Encouraged to continue use CPAP therapy which she has. Also continue participate in weight loss program. Will update echocardiogram to assess for LV systolic and diastolic function more importantly to assess for biatrial chamber size level guide anticoagulation and management of atrial fibrillation in the future. She is encouraged to maintain activity level as tolerated. Will follow up in the clinic in 1 year's time, sooner p.r.n.. Thank you for allowing me to partake in her care Orders: Orders CA echo transthoracic complete Today I48.0 - Paroxysmal atrial fibrillation Coding Level of Care Code New Pt Level 4 (40541) Complex EM visit Add On G2211 Diagnoses Paroxysmal atrial fibrillation I48.0 CPT Codes EKG - CPT: 58837-[id number], Complete ([id number])
[2024-08-23 09:55] VITALS: BP 120/80; PULSE 63; BMI 34.3
--- OUTSIDE RECORDS SUMMARY | 2024-08-23 10:52 | XMS_ITS | Patient Health Record ---
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 Role Phone Missael Pantoja Primary Care Provider [phone] Jose Sams Unavailable [phone] Asa Wei Unavailable [phone] Chana Ridley Unavailable [phone] ALLERGIES Allergen (clinical drug ingredient) Drug/Non Drug Allergy documented on EMR Reaction Allergy Type Onset Date Status seasonal (uncoded) congestion Allergy Active metronidazole Flagyl itching Drug Allergy Act minna Morphine and Related itching Drug Allergy Active REASON FOR REFERRAL No Information MEDICATIONS Medication SIG (Take, Route, Frequency, Duration) Notes Start Date End Date Status Betamethasone Dipropionate 0.05 % 1 application Externally Twice a day for 5 days 10/24/2023 Active Multivitamin - 1 tablet Orally Once a day for 30 day(s) Active Latanoprost 0.005 % 1 drop into affected eye in the evening Ophthalmic Once a day Active Eliquis 5 MG TAKE 1 TABLET BY MOUTH TWICE DAILY for 90 days Active Pepcid AC 10 MG 1 tablet as needed Orally Twice a day Active Biotin 5 MG 1 tablet Orally Once a day for 30 day(s) Active Vitamin B12 100 MCG 1 tablet Orally Once a day Active Albuterol Sulfate HFA 108 (90 Base) MCG/ACT 2 puffs as needed Inhalation every 4 hrs for 30 days PRN 02/26/2022 Active Simethicone 80 MG 1 tablet Orally every 8 hours as needed Active Ambien CR 12.5 MG 1 tablet at bedtime as needed MDD 1 Orally Once a day at bedtime as needed for sleep for 90 days [id number] CB 02/23/2024 Active Calcium 500 MG 2 tablets with meals Orally Once a day Active Zolpidem Tartrate 10 MG 1 tablet at bedtime as needed Orally Once a day for 30 days 06/17/2023 Not-Taking Blood Glucose Test - as directed In Vitro Dx E11.9 , Last appt 04/05/18 One touch Ultra for testing up to twice daily for 30 days 06/29/2018 Active Vitamin D 25 MCG (1000 UT) 1 tablet Orally Once a day for 30 day(s) Active Cyclobenzaprine HCl 10 mg 1 tablet Orally Three times a day as needed for 30 days PRN 09/27/2018 Active CPAP . 8cm H20 G47.33 inhalation QHS for Sleep for 99 days 01/23/2019 Active IMMUNIZATIONS Vaccine Route Administration Date Status Comme nts Arexvy (RSVPREF3 antigen/AS01E/PF) Unknown 12/01/2022 Administered BOOSTRIX (Tdap) 0.5mL IM Intramuscular 02/03/2023 Administ ered COVID19 PFIZER BIVALENT (booster) 30mcg/0.3mL Unknown 12/25/2020 Administered COVID19 PFIZER BIVALENT (booster) 30mcg/0.3mL Unknown 07/29/2021 Administered COVID19 PFIZER BIVALENT (booster) 30mcg/0.3mL Unknown 01/06/2022 Administered COVID19 PFIZER MDV 30mcg/0.3mL preservative free Unknown 05/29/2020 Administered COVID19 PFIZER MDV 30mcg/0.3mL preservative free Unknown 06/19/2020 Administered COVID19 Vaccine HISTORICAL Unknown 12/23/2022 Administe red Flu Vaccine High Dose (historical) Unknown 01/06/2022 Administered Flu-Fluvirin (syringes) PF 4yrs and up IM Intramuscular 03/08/2016 Administered Flu-Fluzone (MDV) 3+ left deltoid 03/27/2012 Administered Flu-Fluzone (MDV) 3+ left deltoid 04/03/2013 Administered Flu-Fluzone (MDV) 3+ left deltoid 12/04/2013 Administered FLUARIX QUAD 0.5mL SYRINGE 6mos & up IM Intramuscular 12/09/2020 Administered FLUARIX QUAD 0.5mL SYRINGE 6mos & up Unknown 12/23/2022 Administered FLULAVAL 5mL MDV 3 YRS and older IM Intramuscular 01/30/2019 Administered FLULAVAL QUAD 0.5mL MDV 6mos & up IM Intramuscular 02/17/2018 Administered FLUZONE MDV 0.5mL 36 months & up (no latex) 5mL MDV-10dose vial IM Intramuscular 03/31/2017 Administered PREVNAR 13 (pneumococcal PCV 13) IM Intramuscular 12/09/2020 Administered PREVNAR 20 (pneumococcal 20 SUKH nicky-dip crm) 0.5mL IM Intramuscular 02/03/2023 Administered SHINGRIX (varicella zoster) 50mcg/0.5mL PFS Unknown 11/30/2021 Administered Zostavax (herpes zoster) (historical) Unknown 07/29/2021 Administered Zostavax (herpes zoster) (historical) Unknown 11/30/2021 Administered SOCIAL HISTORY Tobacco Use: Social History Observation Description Date Details (start date - stop date) Never Smoker NA - NA Sex Assigned At : Social History Observation Description Sex Assigned At Female Tobacco Use/Smoking Question Answer Notes Smoking status: never smoked Additional Findings: Tobacco Non-User No n-smoker - please see Tobacco Use folder for more information Alcohol Screen (Audit-C) Question Answer Notes Did you have a drink containing alcohol in the p ast year? No Points 0 Interpretation Negative Section Notes: [place] to daughter and grandchildren [place] daughter and grandchildren [place] daughter and grandchildren [place] daughter and grandchildren [place] daughter and grandchildren [place] to daughter and grandchildren [place] to [place] to daughter and grandchildren [place] to daughter and grandchildren [place] to daughter and grandchildren [place] to daughter and grandchildren Planning [place] to daughter and grandchildren Planning [place] to daughter and grandchildren Planning [place] to daughter and grandchildren Planning [place] to daughter and grandchildren Planning [place] to daughter and grandchildren Planning [place] to daughter and grandchildren Planning [place] to daughter and grandchildren Planning [place] to daughter and grandchildren Planning [place] to daughter and grandchildren Planning [place] to daughter and grandchildren Planning [place] to daughter and grandchildren Planning [place] to daughter and grandchildren Planning [place] to daughter and grandchildren Planning [place] to daughter and grandchildren Planning [place] to daughter and grandchildren Planning [place] to daughter and grandchildren Planning [place] to daughter and grandchildren Planning [place] to daughter and grandchildren Planning [place] to daughter and grandchildren Planning [place] to daughter and grandchildren Planning [place] to daughter and grandchildren Planning [place] to daughter and grandchildren Planning [place] to daughter and grandchildren Planning [place] to daughter and grandchildren Planning [place] to daughter and grandchildren Planning [place] to daughter and grandchildren Planning [place] to daughter and grandchildren [place] daughter and grandchildren [place] daughter and grandchildren [place] to daughter and grandchildren PROBLEMS Problem Type ICD Code Onset Dates Problem Status W/U Status Risk SNOMED Code Notes Problem Hypothyroidism, unspecified (E03.9) Active confirmed Hypothyr oidism (25369063) Problem Type 2 diabetes mellitus with hyperglycemia (E11.65) Active confirmed 53726900 Problem Mixed hyperlipidemia (E78.2) Active confirmed 074552206 Problem Metabolic syndrome (E88.81) Active confirmed Metabolic syndrome (145705215) Problem Primary insomnia (F51.01) Active confirmed 9723967 Problem Other chronic pain (G89.29) Active confirmed 41052463 Problem Paresthesia of skin (R20.2) Active confirmed 25359794 Problem Bariatric surgery status (Z98.84) Active confirmed 703671454 Problem Vitamin D deficiency (E55.9) Active confirmed 19502846 Problem Essential hypertension (I10) Active confirmed Essential hypertension (46868674) Problem Hyperthyroidism (E05.90) Active confirmed 08146016 Problem Dyslipidemia (E78.5) Active confirmed 665999754 Problem Obesity (BMI 30-39.9) (E66.9) Active confirmed 449543309 Problem JESUS (obstructive sleep apnea) (G47.33) Active confirmed 16136429 Problem Gastroesophageal reflux disease without esophagitis (K21.9) Active confirmed 701298665 Problem Arrhythmia (I49.9) Active confirmed Arr hythmia (877956227) Problem Atrial flutter (I48.92) Active confirmed Atrial flutter (3631583) Problem AF (atrial fibrillation) (I48.91) Active confirmed Atrial fibrillation (01540528) Problem Dysthymia (F34.1) Active confirmed 7866 7006 Problem BMI 32.0-32.9,adult (Z68.32) Active confirmed BMI 30+ - obesity (011426148) Problem BMI 33.0-33.9,adult (Z68.33) Active confirmed Obese class I (016822342612111 ) Problem BMI 31.0-31.9,adult (Z68.31) Active confirmed Body mass index 30.00 to 34.99 (929713118407132 ) Problem Migraine, unspecified (G43.909) Active confirmed Migraine (46650088) Problem 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 [address] [place] [address] 09/19/2023 Missael Pantoja [facility] [address] [place] [address] 10/24/2023 Missael Pantoja [place] [facility] [address] [place] [address] 11/23/2023 Missael Pantoja [facility] [address] [place] [address] 01/27/2024 Jose Sams [facility] [facility] [address] [place] [phone] 02/06/2024 Missael Pantoja [facility] [address] [place] [address] 02/23/2024 Missael Snellfaizan [facility] [address] [place] [address] 04/06/2024 Missael Pantoja [facility] [address] [place] [address] 01/30/2024 Jose Sams [facility] [address] [address] 02/06/2024 Missael Pantoja [facility] [address] [place] [address] 12/05/2023 Chana Ridley [facility] [address] [place] [address] 10/31/2023 Jose Sams [facility] [address] [address] 10/24/2023 Asa Wei Acute allergic reaction, initial encounter T78.40XA ASSESSMENTS Encounter Date Diagnosis Assessment Notes Treatment Notes Treatment Clinical Notes Section Notes 10/24/2023 Acute allergic reaction, initial encounter (ICD-10 - T78.40XA) to metal from eye glasses that were exposed from plastic cover breaking. Will use Benadryl rtc and add steroid topical to help calm PLAN OF TREATMENT Pending Test Test Name Order Date CBC - Complete Blood Count with Manual D iff and Retic 02/03/2023 Free T4 07/08/2021 Glycohemoglobin(A1C) 10/13/2021 Potassium(K+) Level Only, Blood 07/08/19 Lipid Profile(Tgl,Chol,HDL,LDL Calculate d, Ratios) 10/13/2021 Magnesium Level 07/08/2023 Erythrocyte Sedimentation Rate(Sed Rate) 07/08/2021 TSH - Thyroid Stimulating Hormone 2021 MAMMO SCREENING DIGITAL LEAH (Ultrasound if Needed) 03/10/2020 MAMMO SCREENING DIGITAL LEAH (Ultrasound if Needed) 07/08/2021 MAMMO SCREENING DIGITAL LEAH (Ultrasound if Needed) 10/04/2018 BONE DENSITY with Fracture Assessment COVID-19 PCR,REF 1 [facility] 08/28/2020 Spirometry 04/22/2022 Erythrocyte Sedimentation Rate - Automat ed 03/17/2022 Erythrocyte Sedimentation Rate - Automat ed 05/06/2022 Vitamin B12/Folate Level 10/13/2021 CBC - Complete Blood Count with Auto Dif f 10/13/2021 CMP - Comprehensive Metabolic Panel 09/19 Ferritin Level 10/13/2021 Iron and Iron Binding Capacity Vitamin D 25 Hydroxy 10/13/2021 Vitamin A Level,REF 1 [facility] 10/13/2021 Vitamin B1(Thiamine) Level,REF 1 [facility] Future Test Test Name Order Date BMP - Basic Metabolic Panel 04/06/2019 CBC - Complete Blood Count with Auto Dif f 04/06/2019 Glycohemoglobin(A1C) 04/06/2019 Lipid Profile(Tgl,Chol,HDL,LDL Calculate d, Ratios) 04/06/2019 TSH - Thyroid Stimulating Hormone 2019 CMP - Comprehensive Metabolic Panel 09/18 Glycohemoglobin(A1C) 09/28/2020 Lipid Profile(Tgl,Chol,HDL,LDL Calculate d, Ratios) 09/28/2020 Insurance Providers Payer Name Payer Address Payer Phone Subscriber Number Group Number Insured Name Patient Relationship to Insured Coverage Start Date Coverage End Date MEDICARE BLUE PPO [address] [address] [place] [phone] [id number] Sandrita Lemons Self - patient is the insured MEDICAL (GENERAL) HISTORY Medical History History ICD Code Adenocarcinoma of endometrium grade 1, p resumed stage 1: 04/08. Nephrolithiasis: 08/31 Borderline hypothyroidism: annual labs Type 2 DM Anxiety and Depression 2009. Hx cymbalta, and counseling. Associated malaise, fatigue, insomnia, and headaches Vitamin D deficiency JESUS: 2009. CPAP Obesity Morbid (severe) obesity due to excess ca lories E66.01 Surgical History Surgery Date(Month/Year) Lithotripsy for kidney stone 2012 Endometrial bx: blood and mi nute fragments of benign inactive endomtrium with papillary syncytial metaplasia and breakdown pattern. No signs of hyperplasia atypia nor malignancy. 12/26/14 D&C hysteroscopy: disordered proliferative endometrium with focal stromal breakdown without histologic evidence of hyperplasia nor malignancy. 01/28/15 Hysteroscopy D&C [place]: Endom etrial polyp with focal glandular crowding, weakly proliferative endometrium, no atypical hyperplasia nor malignancy identified 08/05/17 Lap. assisted Vaginal Hysterectomy with BSO and cystoscope 02/23/[address] Betty TINSLEY Starting weight: 305 lbs 09/02/2020 Hospitalization History Reason Date(Month/Year) chest pain likely secondary to acute per icarditis 02/23-02/25 2022 sleeve gastrectomy 08/2020
== END 2024-08-23 10:32 | disposition home or self-care (01) ==
LOC: HO.HCS 09:42
PROVIDERS: PCP Nurse Practitioner Family; Visit Provider Internal Medicine Cardiovascular Disease
DX: I48.0 Paroxysmal atrial fibrillation (principal)
CPT/HCPCS: 93010; 99204; G2211

== ENCOUNTER → 2024-08-23 09:41 | Outpatient (BNVA) | payer MEDICARE, SELFPAY | PROVIDERS: PCP Nurse Practitioner Family; Visit Provider Internal Medicine Cardiovascular Disease | DX: I48.0 Paroxysmal atrial fibrillation (principal) | CPT/HCPCS: 93005; 99202 ==

== ENCOUNTER → 2024-08-31 11:18 | Outpatient (BNVA) | payer MEDICARE, SELFPAY | PROVIDERS: PCP Nurse Practitioner Family; Referring Provider Nurse Practitioner Family; Visit Provider Nurse Practitioner Family ==

== ENCOUNTER 2024-09-07 10:23 | Outpatient (AMB) | payer MEDICARE, SELFPAY ==
--- NOTE | 2024-09-07 10:26 | A.OFFVIS_ITS ---
Vital Signs 09/07/24 10:27 Height 5 ft 9.5 in Weight 241 lb 2 oz BMI 35.1 BP 130/78 Blood Pressure Location Rt brachial Position Sitting Pulse 73 Pulse Source Pulse Oximeter Pulse Oximetry (%) 96 Oxygen Delivery Method Room Air Intake Visit Reasons: Obstructive sleep apnea Allergies morphine Allergy (Severe, Verified 09/07/24 10:31) Itching HPI HPI Obstructive sleep apnea: Details: Sandrita is a pleasant 69 year female, never smoker, with underlying moderate JESUS on CPAP, Atrial Fibrillation on Eliquis, DMII, HLD, and h/o pericarditis. She was referred by PCP for pulmonary evaluation to manage CPAP therapy. She was previously under the care of sleep medicine in [place] and recently moved. Prior sleep study from 7+ years ago reportedly revealed moderate sleep apnea and and has been using CPAP therapy for 10-15 years with good effect, unknown pressures, denies supplemental oxygen. She does note significant weight loss s/p bariatic surgery since last sleep study. Her current machine is greater than 7- 8 years ago and in need of new machine. She has been reportedly compliant and benefitting from use, preferring nasal mask. DME was [facility] in [place] and would like to continue with them at this time. At this time, she denies any respiratory symptoms. [facility] Medical History Paroxysmal atrial fibrillation Afib Lower back pain Sleep apnea Menopause Kidney stones Uterine cancer Surgical History History of bariatric surgery History of hysterectomy Family History Father Substance abuse Cardiovascular disease Paternal Grandfather Diabetes Mother Hypertension Paternal Grandmother Hypertension Social History Household Members: Family Both parents involved: No Caregiver staying overnight: No Housing: Apartment Are you a primary professional healthcare representative to a significant other at home: No Do you presently have visiting nurse or other home services: No 75 years or older and lives alone: No Alcohol intake: current Alcohol intake frequency: a few times a month Patient Tobacco Use Status: Never used Tobacco e-Cigarette/Vaping Use: Never Used Second Hand Smoke Exposure: No service: No Current occupational status: retired Cognitive needs: No Hearing needs: No Vision needs: Yes (wear glasses) Review of Systems Const Denies chills, Denies excessive sweating, Denies fever(s), Denies headache(s) and Denies night sweats Eyes Denies dry eyes, Denies irritation and Denies itchy eyes ENT Reports Normal hearing present, Denies headache(s), Denies nasal congestion, Denies nasal discharge, Denies post nasal drip and Denies sore throat Card Denies chest pain, Denies chest pain at rest, Denies chest pain with activity, Denies claudication, Denies leg edema, Denies dyspnea, Denies dyspnea on exertio n, Denies orthopnea and Denies paroxysmal nocturnal dyspnea Resp Denies chest congestion, Denies cough, Denies excessive phlegm production, Denies pain on inspiration, Denies pain with cough, Denies dyspnea, Denies dyspnea on exertion, Denies stridor and Denies wheezing Musc Denies myalgias Neuro Reports Normal hearing present and Denies headache(s) Endo Denies excessive sweating Oniel/Lymph Denies lymphadenopathy Aller/Immun Denies itchy eyes, Denies seasonal rhinorrhea and Denies wheezing Physical Exam Vital Signs: Last Vital Signs Pulse 73 09/07/24 10:27 BP 130/78 09/07/24 10:27 Pulse Ox 96 09/07/24 10:27 Oxygen Delivery Method Room Air 09/07/24 10:27 BMI result Body Mass Index 35.1 Const General: cooperative, healthy appearing, comfortable, no acute distress, well developed and alert Nutritional Appearance: obese Orientation/consciousness: patient oriented x3 Limitations: no limitations HEENT Head: Yes normal to inspection, Yes normocephalic and Yes atraumatic Ears: hearing grossly normal bilaterally and external ears normal Eyes General: appearance normal, both eyes and all related structures Eyelids: Yes eyelids normal Sclerae: sclerae normal EOM: EOMs intact bilaterally Neck Neck: Yes normal visual inspection and Yes no lymphadenopathy Lymphatic: no lymphadenopathy noted Chest Chest palpation & inspection: normal inspection of the chest Resp Effort & Inspection: normal respiratory effort, able to speak in complete sentences, no audible wheezes, no cough, no stridor, not tachypneic, no tripod positioning and no use of accessory muscles Auscultation: clear to auscultation bilaterally Cardio Jugular venous distension: no JVD Rate: regular rate Rhythm: regular rhythm Skin Other: warm, dry General skin exam: no rashes or lesions noted Neuro General: patient oriented x3 Cranial nerves: Yes Normal hearing present Cognition (Neuro): normal cognition Gait exam (Neuro): Normal gait present Extrem General: Yes normal to inspection, Yes capillary refill normal, Yes no clubbing, cyanosis or edema and Yes no pedal edema Psych Appearance: grossly normal and well kempt Speech and movement: Normal speech and movement present and Clear speech present Affect: normal affect Attitude: cooperative Thought process: Normal thought process present Thought content: Normal thought content present Insight: Good insight present (Psych) Judgement: Good judgement present (Psych) Assessment & Plan Assessment & Plan (1) JESUS on CPAP: Code(s): G47.33 - Obstructive sleep apnea (adult) (pediatric) Category: Medical Plan Patient has been using CPAP therapy reportedly compliant and benefitting from use, known h/o moderate JESUS. She is in need of a new machine however will send for updated sleep study as patient has lost a significant amount of weight since her last sleep study 7+ years ago. All questions were answered and patient is in agreement of plan. Will follow-up to review results or sooner if needed. Orders: Orders RT home sleep study Today R40.0 - Somnolence Coding Level of Care Code New Pt Level 3 (70882) Diagnoses JESUS on CPAP G47.33
[2024-09-07 10:27] VITALS: BP 130/78; PULSE 73; O2SAT 96; BMI 35.1
--- OUTSIDE RECORDS SUMMARY | 2024-09-07 10:43 | XMS_ITS | Patient Health Record ---
Author Organization [facility] Physician Nancy collazo Address [address]nd [place] [address] Care Team Providers Care Sport Shoe Spike Assembler Name Role Phone Missael Pantoja Primary Care Provider Jose Sams Unavailable [phone] Asa Wei Unavailable [phone] Chana Ridley Unavailable [phone] ALLERGIES Allergen (clinical drug ingredient) Drug/Non Drug [...] as needed for sleep for 90 days [id number] CB 02/23/2024 Active Calcium 500 MG 2 [...] Hypothyroidism, unspecified (E03.9) Active confirmed Hypothyr oidism (67482894) Problem Type 2 diabetes mellitus with hyperglycemia (E11.65) Active confirmed 34969949 Problem Mixed hyperlipidemia (E78.2) Active confirmed 596881641 Problem Metabolic syndrome (E88.81) Active confirmed Metabolic syndrome (620056451) Problem Primary insomnia (F51.01) Active confirmed 5791899 Problem Other chronic pain (G89.29) Active confirmed 70416378 Problem Paresthesia of skin (R20.2) Active confirmed 46013916 Problem Bariatric surgery status (Z98.84) Active confirmed 839692805 Problem Vitamin D deficiency (E55.9) Active confirmed 49686768 Problem Essential hypertension (I10) Active confirmed Essential hypertension (31926548) Problem Hyperthyroidism (E05.90) Active confirmed 19839578 Problem Dyslipidemia (E78.5) Active confirmed 605946944 Problem Obesity (BMI 30-39.9) (E66.9) Active confirmed 602470724 Problem JESUS (obstructive sleep apnea) (G47.33) Active confirmed 43294059 Problem Gastroesophageal reflux disease without esophagitis (K21.9) Active confirmed 588863304 Problem Arrhythmia (I49.9) Active confirmed Arr hythmia (810824770) Problem Atrial flutter (I48.92) Active confirmed Atrial flutter (2121522) Problem AF (atrial fibrillation) (I48.91) Active confirmed Atrial fibrillation (90716447) Problem Dysthymia (F34.1) Active confirmed 7866 7006 Problem BMI 32.0-32.9,adult (Z68.32) Active confirmed BMI 30+ - obesity (842818621) Problem BMI 33.0-33.9,adult (Z68.33) Active confirmed Obese class I (581371138364750 ) Problem BMI 31.0-31.9,adult (Z68.31) Active confirmed Body mass index 30.00 to 34.99 (374678808166862 ) Problem Migraine, unspecified (G43.909) Active confirmed Migraine (75847657) Problem 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) Active confirmed 187768511 Problem Elevated lymphocytes (D72.820) Active confirmed 71758476 VITAL SIGNS Heart Rate 71 /min 10/24/2023 Oximetry 98 % 10/24/2023 Blood pressure diastolic 80 mm Hg 10/24/2023 Weight-kg 97.52 kg 10/24/2023 Height 69 in 10/24/2023 Blood pressure systolic 124 mm Hg 10/24/2023 Weight 215 lbs 10/24/2023 BMI 31.75 kg/m2 10/24/2023 Encounters Encounter Location Date Provider Diagnosis [place] [facility] [address] [place] [address] 09/19/2023 Missael Pantoja [facility] [address] [place] [address] 10/24/2023 Missael Pantoja [place] [facility] [address] [place] [address] 11/23/2023 Missael [place] [facility] [address] [place] [address] 01/27/2024 Jose Sams [facility] [address] [place] [address] 02/06/2024 Missael [place] [facility] [address] [place] [address] 02/23/2024 [place]ael [place] [facility] [address] [place] [address] 04/06/2024 Missaelsanta Pantoja [facility] [address] [address] 02/06/2024 Missael [place] [facility] [place] [address] [place] [address] 01/30/2024 Jose Sams [facility] [place] [address] [place] [address] 10/31/2023 Jose Sams [facility] [address] [place] [address] 12/05/2023 Chana Ridley [facility] [address] [address] 10/24/2023 Asa Wei Acute allergic reaction, initial [...] DENSITY with Fracture Assessment COVID-19 PCR,REF 1 [facility] 08/28/2020 Spirometry 04/22/2022 Erythrocyte Sedimentation Rate - Automat ed 03/17/2022 Erythrocyte Sedimentation Rate - Automat ed 05/06/2022 Vitamin B12/Folate Level 10/13/2021 CBC - Complete Blood Count with Auto Dif f 10/13/2021 CMP - Comprehensive Metabolic Panel 09/19 Ferritin Level 10/13/2021 Iron and Iron Binding Capacity Vitamin D 25 Hydroxy 10/13/2021 Vitamin A Level,REF 1 [facility] 10/13/2021 Vitamin B1(Thiamine) Level,REF 1 [facility] Future Test Test Name Order Date BMP [...] End Date MEDICARE BLUE PPO [address] [address] [place] [phone] [id number] Sandrita Lemons Self - patient is the [...]
== END 2024-09-07 11:30 | disposition home or self-care (01) ==
LOC: HO.HPSW 10:24
PROVIDERS: PCP Nurse Practitioner Family; Visit Provider Nurse Practitioner Family
DX: G47.33 Obstructive sleep apnea (adult) (pediatric) (principal)
CPT/HCPCS: 99203

== ENCOUNTER → 2024-09-07 10:23 | Outpatient (BNVA) | payer MEDICARE, SELFPAY | PROVIDERS: PCP Nurse Practitioner Family; Visit Provider Nurse Practitioner Family | DX: G47.33 Obstructive sleep apnea (adult) (pediatric) (principal); Z99.89 Dependence on other enabling machines and devices | CPT/HCPCS: 99202 ==

== ENCOUNTER 2024-09-12 10:24 | Outpatient (AMB) | payer MEDICARE, SELFPAY ==
[2024-09-12 10:28] VITALS: BP 108/80; BMI 34.9
--- NOTE | 2024-09-12 10:28 | A.OFFVIS_ITS ---
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 She is doing well with supervisor laboratory concerns. Currently not sexually active, female partner. Denies any vaginal dryness or irritation. Occasional urgency. STI testing offered; she declined. Attempting to eat a healthy diet with calcium and vitamin D and stays active with exercise. Hysterectomy 2018 due to HMB, uterine cancer found w/pathology. Last mammogram; 2024. Colonoscopy is UTD. Denies any family history of breast, ovarian or colon cancer. ON LICENSE OF [facility] Medical History Paroxysmal atrial fibrillation Afib Lower back pain Sleep apnea Menopause Kidney stones Uterine cancer Surgical History H/O total hysterectomy with bilateral salpingo-oophorectomy (BSO) Hx of dilation and curettage History of bariatric surgery Family History Father Substance abuse Cardiovascular disease Paternal Grandfather Diabetes Mother Hypertension Paternal Grandmother Hypertension Social History Household Members: Family Both parents involved: No Caregiver staying overnight: No Housing: Apartment Are you a primary career representative to a significant other at home: No Do you presently have visiting nurse or other home services: No 75 years or older and lives alone: No Alcohol intake: current Alcohol intake frequency: a few times a month Patient Tobacco Use Status: Never used Tobacco e-Cigarette/Vaping Use: Never Used Second Hand Smoke Exposure: No service: No Current occupational status: retired Cognitive needs: No Hearing needs: No Vision needs: Yes (wear glasses) Female Reproductive History Menstrual Menopause type: surgical Total pregnancies: 2 Full term: 1 Number of Living Children: 1 Ab induced: 1 Date of Mammogram: 06/20/24 (Birad 1) Date of last Bone Density Screenin06/20/24 Review of Systems Const All systems reviewed & are unremarkable except as noted in HPI and below Reports as per HPI Eyes Reports no additional complaints ENT Reports no additional complaints Card Reports no additional complaints Resp Reports no additional complaints GI Reports as per HPI and Reports no additional complaints Reports as per HPI Musc Reports no additional complaints Skin/Breast Reports as per HPI Neuro Reports no additional complaints Psych Reports no additional complaints Endo Reports no additional complaints Oniel/Lymph Reports no additional complaints Aller/Immun Reports no additional complaints Physical Exam Vital Signs: Last Vital Signs BP 108/80 09/12/24 10:28 BMI result Body Mass Index 34.9 Const General: cooperative, healthy appearing, no acute distress, well developed and alert Orientation/consciousness: patient oriented x3 HEENT Head: Yes normal to inspection Eyes General: appearance normal, both eyes and all related structures Neck Neck: Yes normal visual inspection Thyroid: Thyroid normal Chest Chest palpation & inspection: normal inspection of the chest and other (no puckering, dimpling, peau de orange, retraction, discharge, masses) Breast/axilla inspection: normal inspection of the breasts Breast/axilla palpation: normal palpation of the breasts Resp Effort & Inspection: normal respiratory effort GI Inspection: Yes normal to inspection and Yes scar Palpation (GI): Soft to palpation Rectal Exam - Female: deferred General: Yes bladder normal to palpation External Female Exam: normal external appearance and normal appearance of the urethra Speculum Exam - Vagina: normal appearance of the vagina, normal palpation, normal vaginal discharge and vagina atrophic Speculum Exam - Cervix: Cervix absent (Surgical cuff no lesions or nodules) Bimanual exam- vagina & uterus: normal bimanual exam, normal palpation, bladder normal to palpation and uterus absent Bimanual Exam- Adnexa, other: no masses Skin General skin exam: no rashes or lesions noted Rashes: no rashes Neuro General: patient oriented x3 Cognition (Neuro): normal cognition Extrem General: Yes normal to inspection Psych Attitude: cooperative Thought process: Normal thought process present Assessment & Plan Assessment & Plan (1) Encounter for well woman exam with routine gynecological exam: Code(s): Z01.419 - Encounter for gynecological examination (general) (routine) without abnormal findings Category: Medical Plan Discussed: Current recommendations for pap smears per ASCCP guidelines. Breast awareness, periodic self breast exams and yearly mammogram. Maintain a healthy lifestyle, well balanced diet including Calcium 1,200 mg and Vitamin D 600 IU daily, and routine exercise. Patient verbalizes understanding and agrees to the plan of care. She was given opportunity to ask questions and all questions were answered to the best of my ability. RTO in 1 year for annual supervisor laboratory exam. This note is constructed using voice recognition software. While every effort has been made to ensure accuracy, maintenance mechanic 2nd shift errors may have been included. Coding Level of Care Code New Pt Prev Care >65yr (54622) Diagnoses Encounter for well woman exam with routine gynecological exam Z01.419
--- OUTSIDE RECORDS SUMMARY | 2024-09-12 12:10 | XMS_ITS | Patient Health Record ---
Author Organization [facility] Physician Nancy collazo Address [address] [place] [address] Care Team Providers Care Weaver Wire Loom Name Role Phone Missael Pantoja Primary Care Provider Jose Sams Unavailable [phone] Asa Wei Unavailable [phone] Chana Ridley Unavailable [phone] ALLERGIES Allergen (clinical drug ingredient) Drug/Non Drug [...] as needed for sleep for 90 days [id number] CB 02/23/2024 Active Calcium 500 MG 2 [...] Hypothyroidism, unspecified (E03.9) Active confirmed Hypothyr oidism (63753002) Problem Type 2 diabetes mellitus with hyperglycemia (E11.65) Active confirmed 92952280 Problem Mixed hyperlipidemia (E78.2) Active confirmed 252222768 Problem Metabolic syndrome (E88.81) Active confirmed Metabolic syndrome (017131824) Problem Primary insomnia (F51.01) Active confirmed 4622802 Problem Other chronic pain (G89.29) Active confirmed 23912490 Problem Paresthesia of skin (R20.2) Active confirmed 51988132 Problem Bariatric surgery status (Z98.84) Active confirmed 730754305 Problem Vitamin D deficiency (E55.9) Active confirmed 66386690 Problem Essential hypertension (I10) Active confirmed Essential hypertension (28163783) Problem Hyperthyroidism (E05.90) Active confirmed 66949322 Problem Dyslipidemia (E78.5) Active confirmed 475055192 Problem Obesity (BMI 30-39.9) (E66.9) Active confirmed 979272318 Problem JESUS (obstructive sleep apnea) (G47.33) Active confirmed 03230266 Problem Gastroesophageal reflux disease without esophagitis (K21.9) Active confirmed 423491130 Problem Arrhythmia (I49.9) Active confirmed Arr hythmia (876436335) Problem Atrial flutter (I48.92) Active confirmed Atrial flutter (7684561) Problem AF (atrial fibrillation) (I48.91) Active confirmed Atrial fibrillation (17050869) Problem Dysthymia (F34.1) Active confirmed 7866 7006 Problem BMI 32.0-32.9,adult (Z68.32) Active confirmed BMI 30+ - obesity (336952414) Problem BMI 33.0-33.9,adult (Z68.33) Active confirmed Obese class I (998790501480727 ) Problem BMI 31.0-31.9,adult (Z68.31) Active confirmed Body mass index 30.00 to 34.99 (543258831090469 ) Problem Migraine, unspecified (G43.909) Active confirmed Migraine (30967132) Problem 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) Active confirmed 502767775 Problem Elevated lymphocytes (D72.820) Active confirmed 30149377 VITAL SIGNS Heart Rate 71 /min 10/24/2023 Oximetry 98 % 10/24/2023 Blood pressure diastolic 80 mm Hg 10/24/2023 Weight-kg 97.52 kg 10/24/2023 Height 69 in 10/24/2023 Blood pressure systolic 124 mm Hg 10/24/2023 Weight 215 lbs 10/24/2023 BMI 31.75 kg/m2 10/24/2023 Encounters Encounter Location Date Provider Diagnosis [place] [facility] [address] [place] [address] 09/19/2023 Missael Pantoja [facility] [address] [place] [address] 10/24/2023 Missael Pantoja [place] [facility] [address] [place] [address] 11/23/2023 Missael [place] [facility] [address] [place] [address] 01/27/2024 Jose Sams [place] [facility] [address] [place] [address] 02/06/2024 Missael [place] [facility] [address] [place] [address] 02/23/2024 Missael [place] [facility] [address] [place] [address] 04/06/2024 Missaelsanta Pantoja [facility] [address] [address] 02/06/2024 Missael [place] [facility] [place] [address] [place] [address] 01/30/2024 Jose Smas [place] [facility] [place] [address] [place] [address] 10/31/2023 Jose Sams [facility] [address] [place] [address] 12/05/2023 Chana Ridley [facility] [address] [address] 10/24/2023 Asa Wei Acute allergic reaction, initial [...] DENSITY with Fracture Assessment COVID-19 PCR,REF 1 [facility] 08/28/2020 Spirometry 04/22/2022 Erythrocyte Sedimentation Rate - Automat ed 03/17/2022 Erythrocyte Sedimentation Rate - Automat ed 05/06/2022 Vitamin B12/Folate Level 10/13/2021 CBC - Complete Blood Count with Auto Dif f 10/13/2021 CMP - Comprehensive Metabolic Panel 09/19 Ferritin Level 10/13/2021 Iron and Iron Binding Capacity Vitamin D 25 Hydroxy 10/13/2021 Vitamin A Level,REF 1 [facility] 10/13/2021 Vitamin B1(Thiamine) Level,REF 1 [facility] Future Test Test Name Order [...] End Date MEDICARE BLUE PPO [address] [address] [place] [phone] [id number] Sandrita Lemons Self - patient is the [...]
== END 2024-09-12 11:00 | disposition home or self-care (01) ==
LOC: HO.HWS 10:25
PROVIDERS: PCP Nurse Practitioner Family; Visit Provider Advanced Practice Midwife
DX: Z01.419 Encounter for gynecological examination (general) (routine) without abnormal findings (principal)
CPT/HCPCS: 99387; 99459

== ENCOUNTER → 2024-09-12 10:24 | Outpatient (BNVA) | payer MEDICARE, SELFPAY | PROVIDERS: PCP Nurse Practitioner Family; Visit Provider Advanced Practice Midwife | DX: Z01.419 Encounter for gynecological examination (general) (routine) without abnormal findings (principal) | CPT/HCPCS: 99387 ==

== ENCOUNTER → 2024-10-02 13:43 | Outpatient (REF) | payer MEDICARE, SELFPAY ==
--- NOTE | 2024-10-02 13:48 | CA_ITS ---
Transthoracic Echocardiogram Patient (Last, First, Middle): Sandrita Lemons Faith Gender: Female Date of : 1955 Age: 69 Procedure Date: 10/02/2024 Procedure Type: Transthoracic Echocardiogram Location: OP Height: 175.26 cm Weight: 108.86 kg BSA: 2.23 m2 Heart Rate: bpm BP: 108 / 80 mmHg Rn Community: [facility] Referring MD: Alfa Denton MD Symptoms: I48.0 - Paroxysmal atrial fibrillation Study Quality: Fair, contrast ECG Rhythm: Sinus Conclusions: - The left ventricular systolic function is normal. The calculated ejection fraction is 62% by biplane method. - No obvious valvular pathology seen on this study. Findings Procedure Information Contrast agent, definity, is being given per protocol without apparent complications. Left Ventricle Normal left ventricular cavity size. The left ventricular systolic function is normal. The calculated ejection fraction is 62% by biplane method. There is no evidence of regional wall motion abnormalities. Diastolic function is normal for age. There is mild septal asymmetric hypertrophy. Right Ventricle Normal right ventricular cavity size. There is low normal right ventricular systolic function. Atria Both atria are normal in size. Aortic Valve There is a normal trileaflet aortic valve. There is no aortic valve stenosis. There is no aortic valve regurgitation. Mitral Valve The mitral valve appears normal. There is trace mitral valve regurgitation. There is no mitral valve stenosis. Pulmonic Valve The pulmonic valve is likely normal. Tricuspid Valve There is trace tricuspid valve regurgitation. There is no evidence of pulmonary hypertension. Great Vessels The aortic arch is normal in size. There is mild dilatation of the ascending aorta measuring 3.80 cm. Venous The inferior vena cava is normal in size and collapses greater than 50% with inspiration. Pericardium/Pleural There is no evidence of pericardial effusion. Prior Study Comparison No prior study available for comparison. Recommendations, Care & Conclusions No obvious valvular pathology seen on this study. Measurements 2D Linear Measurements IVSd: 1.13 0.6-0.9/0.6-1.0 cm LVIDd: 4.66 3.9-5.3/4.2-5.9 cm LVIDd Index: 2.09 2.4-3.2/2.2-3.1 cm/m2 LVIDs: 3.02 2.0-3.6 cm LVPWd: 0.96 0.7-1.1 cm LA Diam: 4.50 2.7-3.8/3.0-4.0 cm LAIDs Index: 2.02 1.5-2.3 cm/m2 LV Mass: 214.32 67-162/88-224 g LV Mass Index: 96.11 43-95/49-115 g/m2 LVOT Diam: 2.10 3.0+(-)1.3 cm 2D Systolic Function EF 4C: 63.70 >55% EF 2C: 62.80 >55% EF BiP: 62.30 >55% Mitral Valve MV Pk E: 0.79 MV PK A: 0.64 MV Decel Time: 248.00 E/A: 1.20 E'Lateral: 10.40 E'Medial: 8.92 E/E' Med: 8.90 E/E' Lat: 7.60 PHT: 73.00 MVA PHT: 3.01 Decel [place]: 3.20 Aortic Valve AoV Pk Patrick: 1.58 AoV Mn Patrick: 1.08 AoV VTI: 0.38 AoV Pk Grad: 10.00 Aov Mn Grad: 5.00 KEYON Cont.VTI: 1.88 LVOT LVOT Pk Patrick: 0.90 LVOT Mn Patrick: 0.59 LVOT VTI: 0.21 LVOT Pk Grad: 3.00 LVOT Mn Grad: 2.00 LVOT Diam: 2.10 LVOT Area: 3.46 Diastolic Function MV Pk E: 0.79 MV Pk A: 0.64 E/A: 1.20 E'Medial: 8.92 E/E' Med: 8.90 E' Laterial: 10.40 E/E' Lat: 7.60 Right Ventricle TAPSE (mm): 18.90 TVS' Patrick: 8.38 Tricuspid Valve TR Pk Patrick: 1.78 TR Pk Grad: 13.00 RA Press: 3.00 RVSP: 16.00 Great Vessels Aorta Sinus of Valsalva: 3.28 2.0-3.5 cm Ao Asc: 3.80 2.1-3.4 cm Ao Arch: 3.10 Updated in Other Vendor System with Status of Final Erasmo Kruger MD electronically signed on 10/04/2024 10:22:57 AM with status of Final
== END ==
LOC: HO.CARD 13:43
PROVIDERS: PCP Nurse Practitioner Family; Visit Provider Internal Medicine Cardiovascular Disease
DX: I48.0 Paroxysmal atrial fibrillation (principal)
CPT/HCPCS: 93306; Q9957

== ENCOUNTER → 2024-10-02 13:48 | Outpatient (BNV) | payer MEDICARE, SELFPAY | PROVIDERS: PCP Nurse Practitioner Family; Visit Provider Internal Medicine | DX: I42.2 Other hypertrophic cardiomyopathy (principal); I48.0 Paroxysmal atrial fibrillation | CPT/HCPCS: 93306 ==

== ENCOUNTER 2024-10-16 12:36 | Outpatient (AMB) | payer MEDICARE, SELFPAY ==
--- NOTE | 2024-10-16 12:40 | A.OFFPC_ITS ---
Vital Signs 10/16/24 12:44 10/16/24 12:49 10/16/24 12:50 Height 5 ft 9.5 in Weight 238 lb 2 oz BMI 34.7 BP 124/77 138/80 126/78 Blood Pressure Location Lt brachial Lt brachial Lt brachial Position Sitting Supine Standing Respiration 12 Pulse 76 76 82 Pulse Source Pulse Oximeter Pulse Oximeter Pulse Oximeter Temp 97.2 F Temp Source Oral Pulse Oximetry (%) 98 97 97 Oxygen Delivery Method Room Air Room Air Room Air Intake Visit Reasons: blood pressure issues/dizzy/tiredness Intake Note: Patient c/o dizziness when changing position and tiredness Oil Well Driller Required: No Allergies morphine Allergy (Severe, Verified 10/16/24 12:58) Itching Medication List - Last Reconciled 10/16/24 by Radha Cardona, [employer] apixaban (Eliquis) 5 mg PO BID CPAP (CPAP Machine/Device) As directed cyclobenzaprine 5 mg PO TID PRN zolpidem 10 mg PO BEDTIME PRN Tobacco use date assessed: 10/16/24 Fall risk assessment: No Falls in past year Last assessed Fall Risk: 10/16/24 Dental Screening Dental Screen Date: 10/16/24 Did you have a dental visit in the last 12 months?: Yes Did you have a dental problem in the last 6 months where you did not have access to dental care?: No Was dental information given to patient?: Patient has dentist HPI HPI Comments History of Present Illness Details 69 y/o F with Pafib with secondary hyper coaguable disorder, hx of pericarditis, chronic low back pain, JESUS on CPAP, insomnia, caregiver role strain, normal pressure glaucoma , diverticulosis, obesity, MDD, GORDON, BPPV Surgical hx: s/p rudolph, gastric bypass, kidney stone, status post D&C family hx: mom with htn, dad cvd and etoh, pgm htn, pgf hld, sibling cvd Social: to , DD; moved from [place] to live near [facility] and grandchildren; 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 * Mammo 06/2024 WNL * PAP s/p RUDOLPH referred to writer producer given hx * Tdap flu 2023, shingles 2021 Specialists: Optho Cards Results: Labs from 04/16/2024 show a normal CBC, normal electrolytes, normal renal function, hemoglobin A1c prediabetic 5.7%, elevated LFTs AST of 44, ALT 35, normal alk phos, total cholesterol 216, LDL 134, HDL 53, triglycerides 145, normal B12, normal vitamin-D, normal TSH, normal folate and normal urine microalbumin creatinine ratio History of Present Illness - The patient is a 69-year-old female pr esenting with dizziness with position changes. - Dizziness increased over months, previ ously considered related to seasonal allergies - Orthostatic VS + at home, done at [facility] visit recently - Symptoms include dizziness lying down and with quick head movements. Rolling over in bed can create sx, too. No fainting or chest pain reported. - Has PAF. Cards note 08/2024 reviewed. S he did get home EKG device and noted tachycardia w/o Afib during these events of dizziness - Glasses prescription has changed, does not think this is a contributing fac tor. Eye exam upcoming - History of low blood pressure with hea t; hx of BPPV in the past; significant family stress due to a recent bereavement (brother in law of leukemia and PE); sister coming from [place] to visit; Sandrita will then go to [place] to attend [facility] Nov 2024 - Bowel changes with intermittent diarrh ea, kefir use for symptomatic improvement. - Preparing for stool test and next colo noscopy is due next year. Review of Systems - Neurological: Reports dizziness; denie s fainting, headache, or nausea. - Cardiovascular: Reports history of low blood pressure with heat; denies chest pain. - Gastrointestinal: Reports normal to li quid bowel movements; denies nausea or vomiting. Physical Exam General: Well developed, well nourished, in no acute distress. Appears stated age. Head: Normocephalic, atraumatic. Eyes: Pupils are equal, round and reactive to light and accommodation. Conjunctivae are clear. Vision grossly normal. EOMI, + ayde hallpike bilat, L>R Ears: TM intact and clear bilat Lungs: Clear to auscultation bilaterally. No rales, rhonchi or wheeze noted. Good air flow in all culp. Heart: Regular rate and rhythm. No murmurs, click, rubs or gallops are noted. No significant orthostatic changes noted. Neuro: Nonfocal Psych: Mood and affect appropriate. Patient reports feeling overwhelmed due to recent family stressors. Discussion Notes I discussed with the patient the likely diagnosis of Benign Paroxysmal Positional Vertigo (BPPV), characterized by the positive maneuver during examination. I provided information about the non-cardiac nature of the dizziness since orthostatic tests in-office did not confirm significant blood pressure drops. I discussed management with vestibular therapy, including the use of the Shantel maneuver, and the option to seek careers counsellor for repositioning crystals. I explained that Meclizine could be used to manage symptoms but emphasized it does not address the underlying issue. The patient requested assistance with a referral to a chiropractor and was advised to message the name through the portal for the necessary paperwork. A Meclizine prescription was agreed upon for symptomatic treatment. We also touched on the potential non-cardio cause of dizziness and reassured her the symptomatic tachycardia episodes were not atrial fibrillation. The need for avoiding rapid head movements was emphasized. Due to concurrent stress factors, such as a recent family member's , I recommended a supportive approach for emotional well-being. I addressed her concerns regarding bowel habits and future diagnostic plans with a stool sample submission. Follow-ups were planned, coinciding with the patient?s sister?s visit, and further instructions were provided on managing symptoms during upcoming travels. Assessment and Plan 1. Benign Paroxysmal Positional Vertigo (BPPV) - Positive maneuvers confirmed BPPV. - Recommend vestibular therapy and Mecli zine. Send Chiro name via portal and i will place referral - Avoid rapid head movements. 2. Orthostatic Hypotension ruled out - In-office testing normal. 3. Tachycardia (self-reported symptoms) - No finding of atrial fibrillation. 4. Diarrhea - Discussed symptoms; stool test pending . RTO in Nov as scheduled, sooner PRN Patient Instructions - Take Meclizine as prescribed to help w ith dizziness. - Avoid rapid head movements and rise sl owly from lying or sitting positions. - Follow-up with chiropractor for dizzin ess management; message portal for referral. - Continue kefir consumption if it helps , but monitor bowel changes. - Complete stool sample testing as soon as possible for evaluation. - Attend scheduled future appointments, including upcoming physical. Consent Patient was informed and verbally consented to the use of an ambient scribe for clinic note documentation during this visit. Total time spent caring for the patient today was 30 minutes. This includes time spent before the visit reviewing the chart, time spent during the visit, and time spent after the visit on documentation, reviewing laboratory results, diagnostic imaging, medications, performing a medically necessary evaluation, counseling on diagnoses, care coordination, ordering appropriate tests, ordering appropriate medications, review of tests performed by other providers, reporting test results with the patient, communication with other healthcare providers. [facility] Medical History (Updated 10/16/24 @ 13:28 by Radha Cardona, [facility]) Afib Kidney stones Lower back pain Menopause Paroxysmal atrial fibrillation Sleep apnea Uterine cancer Surgical History H/O total hysterectomy with bilateral salpingo-oophorectomy (BSO) History of bariatric surgery Hx of dilation and curettage Family History Father Substance abuse Cardiovascular disease Paternal Grandfather Diabetes Mother Hypertension Paternal Grandmother Hypertension Social History Household Members: Family Both parents involved: No Caregiver staying overnight: No Housing: Apartment Are you a primary senior care manager to a significant other at home: No Do you presently have visiting nurse or other home services: No 75 years or older and lives alone: No Alcohol intake: current Alcohol intake frequency: a few times a month Patient Tobacco Use Status: Never used Tobacco e-Cigarette/Vaping Use: Never Used Second Hand Smoke Exposure: No service: No Current occupational status: retired Cognitive needs: No Hearing needs: No Vision needs: Yes (wear glasses) Questionnaire PHQ-9 Over the last 2 weeks, how often have you been bothered by any of the following problems? 1. Little interest or pleasure in doing things: several days 2. Feeling down, depressed, or hopeless: several days 3. Trouble falling or staying asleep, or sleeping too much: several days 4. Feeling tired or having little energy: several days 5. Poor appetite or overeating: several days 6. Feeling bad about yourself - or that you are a failure or have let yourself or your family down: several days 7. Trouble concentrating on things, such as reading the newspaper or watching television: several days 8. Moving or speaking so slowly that other people could have noticed. Or the opposite - being so fidgety or restless that you have been moving around a lot more than usual: several days 9. Thoughts that you would be better off or of hurting yourself in some way: several days Total score: 9 Depression Screening Interpretation: Positive Depression Screening Done: Yes 12065 - PHQ-9 Billing: Yes Source: Developed by Drs. Julito Chen, Alexey Ramires and colleagues, with an educational stas from [employer]. Thrive Questionnaire Date Thrive assessed: 10/16/24 I am a: Patient What is your living situation today?: I have a steady place to live Within the past 12 months, did the food you bought not last and you didn't have the money to get more?: Never true Within the past 12 months, did you worry whether your food would run out before you got money to buy more?: Never true Do you have trouble paying for medicines?: No Do you have trouble getting transportation to medical appointments?: No Do you have trouble paying your heating and electricity bill?: No Do you have trouble taking care of your child, family member or friend?: Yes Do you have trouble with day-to-day activities such as bathing, preparing meals, shopping, managing finances, etc.?: No Are you currently unemployed and looking for a job?: No Are you interested in more education?: No Please select the resources that you would like help with: Care for elder or disabled Currently or been in a relationship where the following occur: No concerns reported THRIVE Score: 0 GORDON-7 AMB Questionnaire GORDON-7 Date GORDON - 7 assessed: 10/16/24 Source: Developed by Drs. Julito Chen, Alexey Ramires and colleagues, with an educational stas from [employer]. Physical exam (Primary Care) Vital Signs: Last Vital Signs Temp 97.2 F 10/16/24 12:44 Pulse 82 10/16/24 12:50 Resp 12 10/16/24 12:44 BP 126/78 10/16/24 12:50 Pulse Ox 97 10/16/24 12:50 Oxygen Delivery Method Room Air 10/16/24 12:50 BMI result Body Mass Index 34.7 Tobacco/Smoking Status: Tobacco use Status Tobacco use date assessed 10/16/24 10/16/24 12:50 Patient Tobacco Use Status Never used Tobacco 10/16/24 12:50 e-Cigarette/Vaping Use Never Used 10/16/24 12:50 PHQ-9: PHQ-9 Score PHQ-9: Total score 9 10/16/24 12:50 Depression Screening Interpretation: Positive Thrive Assessment: Date of Thrive Assessment Date Thrive assessed 10/16/24 10/16/24 12:50 Currently or been in a relationship where the following occur: No concerns reported Coding Level of Care Code Est Pt Level 4 (59595) Complex EM visit Add On G2211 Diagnoses Benign paroxysmal positional vertigo due to bilateral vestibular disorder H81.13 Laterality: bilateral Paroxysmal atrial fibrillation I48.0 Secondary hypercoagulability disorder D68.69 Additional Codes PHQ-9 - 87425 - PHQ-9 Billing: Yes ([id number]) Assessment & Plan Assessment & Plan (1) BPPV (benign paroxysmal positional vertigo): Code(s): H81.10 - Benign paroxysmal vertigo, unspecified ear Category: Medical Qualifiers: Laterality: bilateral Qualified Code(s): H81.13 - Benign paroxysmal vertigo, bilateral (2) Paroxysmal atrial fibrillation: Comment: Paroxysmal atrial fibrillation in this elderly woman with prior history with intermittent symptoms of palpitation which could represent AFib. I have suggested her to invest in a smart phone based EKG device. This will help us confirm presence of atrial fibrillation. Although she currently he is not symptomatic enough with no life-limiting symptoms should require further therapy although I think she would benefit from rhythm control approach.CHADSVASc score of 2-3. I would continue full oral anticoagulation, currently on Eliquis which she has tolerated. Semi annual renal function test should be pursued. Avoi dance of stimulants was discussed. Encouraged to continue use CPAP therapy which she has. Also continue participate in weight loss program. Will update echocardiogram to assess for LV systolic and diastolic function more importantly to assess for biatrial chamber size level guide anticoagulation and management of atrial fibrillation in the future. She is encouraged to maintain activity level as tolerated. Code(s): I48.0 - Paroxysmal atrial fibrillation Category: Medical (3) Secondary hypercoagulability disorder: Comment: Due to AFib on Eliquis Code(s): D68.69 - Other thrombophilia Category: Medical Plan . Medications: New meclizine 25 mg PO BID PRN 60 tabs 2RF dizziness
[2024-10-16 12:44] VITALS: BP 124/77; PULSE 76; RESP 12; TEMP 36.2; O2SAT 98; BMI 34.7
[2024-10-16 12:49] VITALS: BP 138/80; PULSE 76; O2SAT 97
[2024-10-16 12:50] VITALS: BP 126/78; PULSE 82; O2SAT 97
--- OUTSIDE RECORDS SUMMARY | 2024-10-16 13:23 | XMS_ITS | Patient Health Record ---
Author Organization [facility] Physician Nancy collazo Address [address] [place] [address] Care Team Providers Care Cosmetician Apprentice Name Role Phone Missael Pantoja Primary Care Provider [phone] Jose Sams Unavailable [phone] Asa Wei Unavailable [phone] Chana Ridley Unavailable [phone] ALLERGIES Allergen (clinical drug ingredient) Drug/Non Drug [...] as needed for sleep for 90 days [id number] CB 02/23/2024 Active Calcium 500 MG 2 [...] Hypothyroidism, unspecified (E03.9) Active confirmed Hypothyr oidism (79425755) Problem Type 2 diabetes mellitus with hyperglycemia (E11.65) Active confirmed 00240947 Problem Mixed hyperlipidemia (E78.2) Active confirmed 311386076 Problem Metabolic syndrome (E88.81) Active confirmed Metabolic syndrome (015434854) Problem Primary insomnia (F51.01) Active confirmed 3360033 Problem Other chronic pain (G89.29) Active confirmed 68815433 Problem Paresthesia of skin (R20.2) Active confirmed 47222241 Problem Bariatric surgery status (Z98.84) Active confirmed 765554902 Problem Vitamin D deficiency (E55.9) Active confirmed 34197213 Problem Essential hypertension (I10) Active confirmed Essential hypertension (90831021) Problem Hyperthyroidism (E05.90) Active confirmed 36034351 Problem Dyslipidemia (E78.5) Active confirmed 363771511 Problem Obesity (BMI 30-39.9) (E66.9) Active confirmed 735712319 Problem JESUS (obstructive sleep apnea) (G47.33) Active confirmed 94857828 Problem Gastroesophageal reflux disease without esophagitis (K21.9) Active confirmed 156796947 Problem Arrhythmia (I49.9) Active confirmed Arr hythmia (283479777) Problem Atrial flutter (I48.92) Active confirmed Atrial flutter (9152843) Problem AF (atrial fibrillation) (I48.91) Active confirmed Atrial fibrillation (60901258) Problem Dysthymia (F34.1) Active confirmed 7866 7006 Problem BMI 32.0-32.9,adult (Z68.32) Active confirmed BMI 30+ - obesity (073919650) Problem BMI 33.0-33.9,adult (Z68.33) Active confirmed Obese class I (434457114584778 ) Problem BMI 31.0-31.9,adult (Z68.31) Active confirmed Body mass index 30.00 to 34.99 (212997401107238 ) Problem Migraine, unspecified (G43.909) Active confirmed Migraine (22248129) Problem 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) Active confirmed 052049895 Problem Elevated lymphocytes (D72.820) Active confirmed 83867316 VITAL SIGNS Heart Rate 71 /min 10/24/2023 Oximetry 98 % 10/24/2023 Blood pressure diastolic 80 mm Hg 10/24/2023 Weight-kg 97.52 kg 10/24/2023 Height 69 in 10/24/2023 Blood pressure systolic 124 mm Hg 10/24/2023 Weight 215 lbs 10/24/2023 BMI 31.75 kg/m2 10/24/2023 Encounters Encounter Location Date Provider Diagnosis Administrative [facility] [address] [place] [address] 10/24/2023 Missael Patnoja [facility] [address] [place] [address] 11/23/2023 Missael Pantoja [facility] Card[facility] [address] [place] [address] 01/27/2024 Jose Sams [facility] [address] [address] 02/06/2024 Missael Pantoja [facility] [address] [place] [address] 02/23/2024 Missael Pantoja [facility] [address] [place] [address] 04/06/2024 Missael Pantoja [facility] [address] [place] [address] 01/30/2024 Jose Sams [facility] [address] [address] 02/06/2024 Missael Pantoja [facility] [address] [place] [phone] 12/05/2023 Chana Ridley [facility] [facility] [address] [place] [address] 10/31/2023 Jose Sams [facility] Internal Medicine [facility] [address] [place] [address] 10/24/2023 Asa Wei Acute allergic reaction, initial [...] DENSITY with Fracture Assessment COVID-19 PCR,REF 1 [facility] 08/28/2020 Spirometry 04/22/2022 Erythrocyte Sedimentation Rate - Automat ed 03/17/2022 Erythrocyte Sedimentation Rate - Automat ed 05/06/2022 Vitamin B12/Folate Level 10/13/2021 CBC - Complete Blood Count with Auto Dif f 10/13/2021 CMP - Comprehensive Metabolic Panel 09/19 Ferritin Level 10/13/2021 Iron and Iron Binding Capacity Vitamin D 25 Hydroxy 10/13/2021 Vitamin A Level,REF 1 [facility] 10/13/2021 Vitamin B1(Thiamine) Level,REF 1 [facility] Future Test Test Name Order Date [...] Start Date Coverage End Date MEDICARE BLUE O [address] [address] [place] [phone] [id number] Sandrita Lemons Self - patient is the [...] ca lories E66.01 Surgical History Surgery Date(Month/Year) Lap Sleeve Gastrectomy Dr. Hernández AO Starting weight: 305 lbs 09/02/2020 Lap. assisted Vaginal Hysterectomy with BSO and cystoscope 02/23/18 Hysteroscopy D&C Chong: Endom etrial polyp with focal glandular crowding, weakly proliferative endometrium, no atypical hyperplasia nor malignancy identified 08/05/17 D&C hysteroscopy: disordered proliferative endometrium with focal stromal breakdown without histologic evidence of hyperplasia nor malignancy. 01/28/15 Endometrial bx: blood and mi nute fragments of benign inactive endomtrium with papillary syncytial metaplasia and breakdown pattern. No signs of hyperplasia atypia nor malignancy. 12/26/14 Lithotripsy for kidney stone 2012 Hospitalization History Reason Date(Month/Year) chest pain likely secondary to acute per icarditis 02/23-02/25 2022 sleeve gastrectomy 08/2020
== END 2024-10-16 14:42 | disposition home or self-care (01) ==
LOC: HO.HMCFM 12:37
PROVIDERS: PCP Nurse Practitioner Family; Visit Provider Nurse Practitioner Family
DX: H81.13 Benign paroxysmal vertigo, bilateral (principal); I48.0 Paroxysmal atrial fibrillation; D68.69 Other thrombophilia

== ENCOUNTER → 2024-10-16 12:36 | Outpatient (BNVA) | payer MEDICARE, SELFPAY | PROVIDERS: PCP Nurse Practitioner Family; Visit Provider Nurse Practitioner Family | DX: H81.13 Benign paroxysmal vertigo, bilateral (principal); I48.0 Paroxysmal atrial fibrillation; D68.69 Other thrombophilia; Z79.01 Long term (current) use of anticoagulants; Z13.31 Encounter for screening for depression | CPT/HCPCS: 96127; 99212 ==

== ENCOUNTER 2024-11-23 11:04 | Outpatient (REF) | payer MEDICARE, SELFPAY ==
--- OUTSIDE RECORDS SUMMARY | 2024-01-30 05:45 | XMS_ITS ---
Author Organization [facility] Physician Nancy collazo Address [address] [facility] [address] [place] [address] Care Team Providers Care Supervisor Hairspring Fabrication Name Role Phone Missael saxena Primary Care Provider Jose Sams Unavailable [phone] REASON FOR VISIT 6m fu SOCIAL HISTORY Sex Assigned At : Social History Observation Description Sex Assigned At Female Encounters Encounter Location Date Provider Diagnosis [facility] [address] [place] [address] 01/30/2024 Jose Sams PLAN OF TREATMENT No Information
--- OUTSIDE RECORDS SUMMARY | 2024-02-06 05:40 | XMS_ITS ---
Author Organization [facility] Physician Nancy collazo Address [address] [facility] [address] [place] [address] Care Team Providers Care Cornetist Name Role Phone Missael Pantoja Primary Care Provider [phone] ALLERGIES Allergen (clinical drug ingredient) Drug/Non Drug Allergy documented on EMR Reaction Allergy Type Onset Date Status seasonal (uncoded) congestion Allergy Active metronidazole Flagyl itching Drug Allergy Act minna Morphine and Related itching Drug Allergy Active REASON FOR VISIT 6 month f/u SOCIAL HISTORY Sex Assigned At : Social History Observation Description Sex Assigned At Female Section Notes: Planning to move to [place] to be closer to daughter and grandchildren Encounters Encounter Location Date Provider Diagnosis [facility] [address] [place] [address] 02/06/2024 Missael Pantoja PLAN OF TREATMENT No Information History and Physical Notes * HPI (History of Present Illness) Category Sub-Category Detail Notes Category Not es Screening Fall Risk Assessment Fall Risk A ssessment:: No falls in the past year Cognitive Impairment/Dementi a: The patient does not have cognitive impairment/dementia Impaired Gait: does not have impaired ga it Ambulatory assistance: and does not requ daniela ambulatory assistance Ambulatory status:: Ambulatory Are you afraid of falling?: No Do you feel unsteady when standing or wa lking?: No How would you describe your risk for fal ling?: Low Pain Scale Assessment Is the patient complaining of any pain?: No Recent Travel Has the patient been out of the country or been associated with anyone who has recently been out of the country within the past 30 days?: No Other Providers Have you seen any ot her provider(s) (including self-referrals) since your last office visit?: No Clinical Explosive Man Documentation Pat ient presents today for: .Six month follow up
--- OUTSIDE RECORDS SUMMARY | 2024-02-06 08:39 | XMS_ITS ---
Author Organization [facility] Physician Nancy collazo Address [address] [facility] [address] [place] [address] Care Team Providers Care Storage Management Consultant Name Role Phone Missael Pantoja Primary Care Provider REASON FOR VISIT appt SOCIAL HISTORY Sex Assigned At : Social History Observation Description Sex Assigned At Female Encounters Encounter Location Date Provider Diagnosis [facility] [address] [place] [address] 02/06/2024 Missael Pantoja PLAN OF TREATMENT No Information
--- OUTSIDE RECORDS SUMMARY | 2024-02-23 06:33 | XMS_ITS ---
Author Organization [facility] Physician Nancy collazo Address [address] [place] [address] Care Team Providers Care Cna Per Diem Name Role Phone Missael Pantoja Primary Care Provider REASON FOR VISIT Due Ambien CR MEDICATIONS Medication SIG (Take, Route, Frequency, Duration) Notes Start Date End Date Status Ambien CR 12.5 MG 1 tablet at bedtime as needed MDD 1 Orally Once a day at bedtime as needed for sleep for 90 days [id number] CB 02/23/2024 Active SOCIAL HISTORY Sex Assigned At : Social History Observation Description Sex Assigned At Female Encounters Encounter Location Date Provider Diagnosis [facility] [address] [place] [address] 02/23/2024 Missael Pantoja PLAN OF TREATMENT Medication Medication Name Sig Start Date Stop Date Notes Ambien CR 12.5 MG 1 tablet at bedtime as needed MDD 1 Orally Once a day at bedtime as needed for sleep for 90 days 02/23/2024 [id number] C B
--- OUTSIDE RECORDS SUMMARY | 2024-04-06 10:19 | XMS_ITS ---
Author Organization [facility] Physician Nancy collazo Address [address] [facility] [address] [place] [address] Care Team Providers Care Engineering Operations Leader Name Role Phone Missael Pantoja Primary Care [...] Date Provider Diagnosis [facility] [address] [place] [address] 04/06/2024 Missael Pantoja PLAN OF TREATMENT Medication Medication Name Sig Start Date Stop Date Notes Betamethasone Dipropionate 0.05 % 1 application Externally Twice a day for 5 days 10/24/2023
--- OUTSIDE RECORDS SUMMARY | 2024-11-23 12:08 | XMS_ITS | Clinical Summary ---
Author Organization [facility] Address [address] [facility] [address] [place] [phone] Phone Care Team Providers Care Feed Mill Manager Name Role Phone Radha Orourke [employer] HUNTER Primary Care Provider Encounters Date Type Department Care Team Description 11/06/2024 3:45 PM EDT Office Visit [facility] [address] [place] [address] [place] [address] Radha Orourke, José Luis Pena, PT Vertigo (Primary Dx) 10/29/2024 3:45 PM EDT Office Visit [facility] Services [address] [place] [address] [place] [address] Radha Orourke NP Bell, Ross, PT Vertigo (Primary Dx) 10/29/2024 Plan of Care Documentation [facility] [address] [place] [address] [place] [address] 10/23/2024 Transcribe Orders [facility] [address] [place] [address] [place] [address] Radha Orourke NP Encounter for rehabilitation (Primary Dx) from Last 3 Months Social History Tobacco Use Types Packs/Day Years Used Date Smoking Tobacco: Never Assessed Education Answer Date Recorded Are you interested in more education? Not on neal e 10/23/2024 Are you concerned about learning? Not on file 10/23/2024 No 10/23/2024 No 10/23/2024 Digital Access Answer Date Recorded No 10/23/2024 No 10/23/2024 Reliable internet access at home? Not on file 10/23/2024 Device with a working camera? Not on file Comments Unknown Sex and Gender Information Value Date Recorded Sex Assigned at Not on file Legal Sex Female 2:14 PM EDT Gender Identity Not on file Sexual Orientation Not on file Plan of Treatment Health Maintenance Due Date Last Done Comments Adult Td,Tdap Booster 1955 LIPID PANEL 1955 DEPRESSION SCREENING 1967 SMOKING Hx and SMOKELESS TOB ACCO SCREENING 08/28/1968 HEPATITIS C SCREENING 08/28/1973 MAMMOGRAM 1995 COLOGUARD 08/28/2000 COLONOSCOPY 08/28/2000 COLORECTAL CANCER SCREENING 08/28/2000 FIT TEST 08/28/2000 FOBT 08/28/2000 SIGMOIDOSCOPY 08/28/2000 VIRTUAL COLONOSCOPY 08/28/2000 PNEUMOCOCCAL VACCINES (50+ y ears) (1 of 1 - PCV) 08/28/2005 ZOSTER VACCINES (1 of 2) 08/28/2005 OSTEOPOROSIS SCREENING INITI AL (ONE-TIME) 08/28/2020 COVID-19 VACCINE (1 - 2023-2 5 season) 2023 RSV VACCINE (1 - 1-dose 75+ series) 08/28/2030 HEPATITIS A VACCINES Aged Out No long er eligible based on patient's age to complete this topic HIB VACCINES Aged Out No longer eligi ble based on patient's age to complete this topic MENINGOCOCCAL VACCINES (ACWY) Aged Out No longer eligible based on patient's age to complete this topic MENINGOCOCCAL VACCINES (B) Aged Out N o longer eligible based on patient's age to complete this topic Medical Devices Not on file Insurance [place] MEDIC[place] BLUE REPLACEMENT MEDICARE PPO BLUE REPLACEMENT [id number] MEDICARE PPO BLUE REPLACEMENT [id number] MEDICARE PPO BLUE REPLACEMENT [id number] MEDICARE PPO BLUE REPLACEMENT [facility] MEDICARE PPO BLUE REPLACEMENT Care Teams Feed Mill Manager Relationship Specialty Start Date End Date Radha Orourke NP [address] [place] [address] [email or web address] PCP - General 10/23/24 Additional Source Comments The information contained in this document represents components of the legal health record. It is not the complete legal health record.[facility]
--- OUTSIDE RECORDS SUMMARY | 2024-11-23 12:08 | XMS_ITS | Patient Health Record ---
Author Organization [facility] Physician Nancy collazo Address [address] [facility] 2nd [place] [address] Care Team Providers Care Videogame Tester Name Role Phone Robbinnieves Missael Primary Care Provider Jose Sams Unavailable [phone] Chana Ridley Unavailable [phone] ALLERGIES Allergen (clinical drug ingredient) Drug/Non Drug [...] as needed for sleep for 90 days [id number] CB 02/23/2024 Active Calcium 500 MG 2 [...] Hypothyroidism, unspecified (E03.9) Active confirmed Hypothyr oidism (84083211) Problem Type 2 diabetes mellitus with hyperglycemia (E11.65) Active confirmed 42365320 Problem Mixed hyperlipidemia (E78.2) Active confirmed 721397755 Problem Metabolic syndrome (E88.81) Active confirmed Metabolic syndrome (252373630) Problem Primary insomnia (F51.01) Active confirmed 5345278 Problem Other chronic pain (G89.29) Active confirmed 43057090 Problem Paresthesia of skin (R20.2) Active confirmed 88606226 Problem Bariatric surgery status (Z98.84) Active confirmed 640830239 Problem Vitamin D deficiency (E55.9) Active confirmed 78210988 Problem Essential hypertension (I10) Active confirmed Essential hypertension (78062326) Problem Hyperthyroidism (E05.90) Active confirmed 52122302 Problem Dyslipidemia (E78.5) Active confirmed 869690476 Problem Obesity (BMI 30-39.9) (E66.9) Active confirmed 441487550 Problem JESUS (obstructive sleep apnea) (G47.33) Active confirmed 92352513 Problem Gastroesophageal reflux disease without esophagitis (K21.9) Active confirmed 716390455 Problem Arrhythmia (I49.9) Active confirmed Arr hythmia (932995143) Problem Atrial flutter (I48.92) Active confirmed Atrial flutter (4541667) Problem AF (atrial fibrillation) (I48.91) Active confirmed Atrial fibrillation (03621866) Problem Dysthymia (F34.1) Active confirmed 7866 7006 Problem BMI 32.0-32.9,adult (Z68.32) Active confirmed BMI 30+ - obesity (186540660) Problem BMI 33.0-33.9,adult (Z68.33) Active confirmed Obese class I (180726467005211 ) Problem BMI 31.0-31.9,adult (Z68.31) Active confirmed Body mass index 30.00 to 34.99 (456150483471391 ) Problem Migraine, unspecified (G43.909) Active confirmed Migraine (47166061) Problem 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) Active confirmed 039454910 Problem Elevated lymphocytes (D72.820) Active confirmed 80176413 Encounters Encounter Location Date Provider Diagnosis [place] [facility] [address] [place] [address] 01/27/2024 Jose Sams [facility] [address] [address] 02/06/2024 Missael Pantoja [facility] [address] [address] 02/23/2024 Missaelsanta Pantoja [facility] [address] [address] 04/06/2024 Missael Scarlett [facility] [address] [place] [address] 12/05/2023 hCana Ridley [facility] [address] [address] 02/06/2024 Miss[facility] [address] [place] [address] 01/30/2024 Jose Sams PLAN OF TREATMENT Pending Test Test Name [...] DENSITY with Fracture Assessment COVID-19 PCR,REF 1 [facility] 08/28/2020 Spirometry 04/22/2022 Erythrocyte Sedimentation Rate - Automat ed 03/17/2022 Erythrocyte Sedimentation Rate - Automat ed 05/06/2022 Vitamin B12/Folate Level 10/13/2021 CBC - Complete Blood Count with Auto Dif f 10/13/2021 CMP - Comprehensive Metabolic Panel 09/19 Ferritin Level 10/13/2021 Iron and Iron Binding Capacity Vitamin D 25 Hydroxy 10/13/2021 Vitamin A Level,REF 1 [facility] 10/13/2021 Vitamin B1(Thiamine) Level,REF 1 [facility] Future Test Test Name Order Date BMP [...] End Date MEDICARE BLUE PPO [address] [address] [place] [phone] [id number] Sandrita Lemons Self - patient is the [...] 02/23/[address] [facility] Starting weight: 305 lbs 09/02/2020 Hospitalization History Reason Date(Month/Year) chest pain likely secondary to acute per icarditis 02/23-02/25 2022 sleeve gastrectomy 08/2020
[2024-11-23 15:00] LABS: Alanine Aminotransferase 36 U/L (0-31); Albumin Level 4.2 g/dL (3.5-5.0); Alkaline Phosphatase 74 U/L (39-117); Anion Gap 11 (12-20); Aspartate Amino Transferase 44 U/L (5-31); Blood Urea Nitrogen 17 mg/dL (9-16); Calcium 9.5 mg/dL (8.4-10.2); Carbon Dioxide 27 mmol/L (22-29); Chloride 107 mmol/L (96-108); Cholesterol 259 mg/dL (<200); Estimated Glomerular Filt Rate > 60; HDL Cholesterol 53 mg/dL (>40); Potassium 4.1 mmol/L (3.3-5.1); Sodium 141 mmol/L (135-145); Total Protein 7.1 g/dL (6.5-8.0); Triglycerides 184 mg/dL (<150)
== END 2024-11-23 11:05 | disposition home or self-care (01) ==
LOC: HO.WFDLDS 11:04
PROVIDERS: Visit Provider Nurse Practitioner Family
DX: E78.2 Mixed hyperlipidemia (principal); R79.89 Other specified abnormal findings of blood chemistry
CPT/HCPCS: 36415; 80053; 80061

== ENCOUNTER → 2024-11-27 12:36 | Outpatient (REF) | payer MEDICARE, SELFPAY ==
--- OUTSIDE RECORDS SUMMARY | 2024-01-30 05:45 | XMS_ITS ---
Author Organization [facility] Physician Nancy collazo Address [address] [facility] 2[address] [place] [address] Care Team Providers Care Package Designer Name Role Phone Missael saxena Primary Care Provider Jose Sams Unavailable [phone] REASON FOR VISIT 6m fu SOCIAL HISTORY Sex Assigned At : Social History Observation Description Sex Assigned At Female Encounters Encounter Location Date Provider Diagnosis [facility] [address] [place] [address] 01/30/2024 Jose Sams PLAN OF TREATMENT No Information
--- OUTSIDE RECORDS SUMMARY | 2024-02-06 05:40 | XMS_ITS ---
Author Organization [facility] Physician Nancy collazo Address [address] [facility] [address] [place] [address] Care Team Providers Care Competitive Athlete Name Role Phone Missael Pantoja Primary Care [...] Female Section Notes: Planning to move to [place] to be closer to daughter and grandchildren Encounters Encounter Location Date Provider Diagnosis [facility] [address] [place] [address] 02/06/2024 Missael Pantoja PLAN OF TREATMENT No [...] since your last office visit?: No Clinical Web Retailer Documentation Pat ient presents today for: .Six month follow up
--- OUTSIDE RECORDS SUMMARY | 2024-02-06 08:39 | XMS_ITS ---
Author Organization [facility] Physician Nancy collazo Address [address] [facility] [address] [place] [address] Care Team Providers Care Applications Developer Name Role Phone Missael Pantoja Primary Care Provider [phone] REASON FOR VISIT appt SOCIAL HISTORY Sex Assigned At : Social History Observation Description Sex Assigned At Female Encounters Encounter Location Date Provider Diagnosis [facility] [address] [place] [address] 02/06/2024 Missael Pantoja PLAN OF TREATMENT No Information
--- OUTSIDE RECORDS SUMMARY | 2024-02-23 06:33 | XMS_ITS ---
Author Organization [facility] Physician Nancy collazo Address [address] [facility] [address] [place] [address] Care Team Providers Care Labor Economist Name Role Phone Missael Pantoja Primary Care Provider [phone] REASON FOR VISIT Due Ambien CR MEDICATIONS Medication SIG (Take, Route, Frequency, Duration) Notes Start Date End Date Status Ambien CR 12.5 MG 1 tablet at bedtime as needed MDD 1 Orally Once a day at bedtime as needed for sleep for 90 days [id number] CB 02/23/2024 Active SOCIAL HISTORY Sex Assigned At : Social History Observation Description Sex Assigned At Female Encounters Encounter Location Date Provider Diagnosis [facility] [address] [place] [address] 02/23/2024 Missael Pantoja PLAN OF TREATMENT Medication Medication Name Sig Start Date Stop Date Notes Ambien CR 12.5 MG 1 tablet at bedtime as needed MDD 1 Orally Once a day at bedtime as needed for sleep for 90 days 02/23/2024 [id number] C B
--- OUTSIDE RECORDS SUMMARY | 2024-04-06 10:19 | XMS_ITS ---
Author Organization [facility] Physician Nancy collazo Address [address] [facility] [address] [place] [address] Care Team Providers Care Insurance Analyst Name Role Phone Missael Pantoja Primary Care Provider REASON FOR VISIT RX betamethasone MEDICATIONS Medication SIG (Take, Route, Frequency, Duration) Notes Start Date End Date Status Betamethasone Dipropionate 0.05 % 1 application Externally Twice a day for 5 days 10/24/2023 Active SOCIAL HISTORY Sex Assigned At : Social History Observation Description Sex Assigned At Female Encounters Encounter Location Date Provider Diagnosis [facility] [address] [place] [address] 04/06/2024 Missael Pantoja PLAN OF TREATMENT Medication Medication Name Sig Start Date Stop Date Notes Betamethasone Dipropionate 0.05 % 1 application Externally Twice a day for 5 days 10/24/2023
--- OUTSIDE RECORDS SUMMARY | 2024-11-27 14:56 | XMS_ITS | Clinical Summary ---
Author Organization [facility] Address [address] [facility] [address] [place] [address] Phone Care Team Providers Care Transmission Design Engineer Name Role Phone Radha Orourke ELEVATOR CONSTRUCTOR SUPERVISOR Primary Care Provider Encounters Date Type Department Care Team Description 11/06/2024 3:45 PM EDT Office Visit [facility] [address] [place] [address] [place] [address] Radha Orourke, José Luis Pena, PT Vertigo (Primary Dx) 10/29/2024 3:45 PM EDT Office Visit [facility] [address] [place] [address] [place] [address] Radha Orourke NP Bell, Ross, PT Vertigo (Primary Dx) 10/29/2024 Plan of Care Documentation [facility] [address] [place] [address] [place] [address] 10/23/2024 Transcribe Orders [facility] [address] [place] [address] [place] [address] Radha Orourke NP Encounter for rehabilitation (Primary [...] 08/28/2005 OSTEOPOROSIS SCREENING INITI AL (ONE-TIME) 08/28/2020 INFLUENZA VACCINE (#1) 2024 COVID-19 VACCINE (1 - 2023-2 5 season) 2024 RSV VACCINE (1 - 1-dose 75+ series) [...] PPO BLUE REPLACEMENT MEDICARE PPO BLUE REPLACEMENT MEDICARE PPO BLUE REPLACEMENT [id number] MEDICARE PPO BLUE REPLACEMENT MEDICARE PPO BLUE REPLACEMENT MEDICARE PPO BLUE REPLACEMENT Care Teams Transmission Design Engineer Relationship Specialty Start Date End Date Radha Orourke NP [address] [place] [address] [email or web address] PCP - General 10/23/24 Additional Source Comments The information contained in this document represents components of the legal health record. It is not the complete legal health record.[facility]
--- OUTSIDE RECORDS SUMMARY | 2024-11-27 14:57 | XMS_ITS | Patient Health Record ---
Author Organization [facility] Physician Nancy collazo Address [address] [facility] 2nd [place] [address] Care Team Providers Care Manager Sterile Name Role Phone Robbinnieves Missael Primary Care Provider [phone] Jose Sams Unavailable [phone] Chana Ridley Unavailable [phone] ALLERGIES Allergen (clinical drug ingredient) Drug/Non Drug [...] as needed for sleep for 90 days 799103175 CB 02/23/2024 Active Calcium 500 MG 2 [...] Hypothyroidism, unspecified (E03.9) Active confirmed Hypothyr oidism (56183588) Problem Type 2 diabetes mellitus with hyperglycemia (E11.65) Active confirmed 74550499 Problem Mixed hyperlipidemia (E78.2) Active confirmed 832688767 Problem Metabolic syndrome (E88.81) Active confirmed Metabolic syndrome (850097979) Problem Primary insomnia (F51.01) Active confirmed 8099414 Problem Other chronic pain (G89.29) Active confirmed 63369613 Problem Paresthesia of skin (R20.2) Active confirmed 38074460 Problem Bariatric surgery status (Z98.84) Active confirmed 307574393 Problem Vitamin D deficiency (E55.9) Active confirmed 24815784 Problem Essential hypertension (I10) Active confirmed Essential hypertension (95857850) Problem Hyperthyroidism (E05.90) Active confirmed 93122796 Problem Dyslipidemia (E78.5) Active confirmed 135941257 Problem Obesity (BMI 30-39.9) (E66.9) Active confirmed 090551817 Problem JESUS (obstructive sleep apnea) (G47.33) Active confirmed 53104459 Problem Gastroesophageal reflux disease without esophagitis (K21.9) Active confirmed 563176889 Problem Arrhythmia (I49.9) Active confirmed Arr hythmia (769739652) Problem Atrial flutter (I48.92) Active confirmed Atrial flutter (5780831) Problem AF (atrial fibrillation) (I48.91) Active confirmed Atrial fibrillation (00677897) Problem Dysthymia (F34.1) Active confirmed 7866 7006 Problem BMI 32.0-32.9,adult (Z68.32) Active confirmed BMI 30+ - obesity (282174729) Problem BMI 33.0-33.9,adult (Z68.33) Active confirmed Obese class I (901054129959342 ) Problem BMI 31.0-31.9,adult (Z68.31) Active confirmed Body mass index 30.00 to 34.99 (237599433093008 ) Problem Migraine, unspecified (G43.909) Active confirmed Migraine (64752186) Problem 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) Active confirmed 209321119 Problem Elevated lymphocytes (D72.820) Active confirmed 62425141 Encounters Encounter Location Date Provider Diagnosis [place] [facility] [address] [place] [address] 01/27/2024 Jose Sams [facility] [address] [address] 02/06/2024 Missael Pantoja [facility] [address] [address] 02/23/2024 Missaelsnata Pantoja [facility] [address] [address] 04/06/2024 Missael Scarlett [facility] [address] [place] [address] 12/05/2023 Chana Ridley [facility] [address] [address] 02/06/2024 Missael [facility] [address] [place] [address] 01/30/2024 Jose Sams PLAN OF TREATMENT Pending [...] DENSITY with Fracture Assessment COVID-19 PCR,REF 1 [facility] 08/28/2020 Spirometry 04/22/2022 Erythrocyte Sedimentation Rate - Automat ed 03/17/2022 Erythrocyte Sedimentation Rate - Automat ed 05/06/2022 Vitamin B12/Folate Level 10/13/2021 CBC - Complete Blood Count with Auto Dif f 10/13/2021 CMP - Comprehensive Metabolic Panel 09/19 Ferritin Level 10/13/2021 Iron and Iron Binding Capacity Vitamin D 25 Hydroxy 10/13/2021 Vitamin A Level,REF 1 [facility] 10/13/2021 Vitamin B1(Thiamine) Level,REF 1 [facility] Future Test Test Name Order Date [...] End Date MEDICARE BLUE PPO [address] [address] [place] [id number] Sandrita Lemons Self - patient is the [...] History Surgery Date(Month/Year) Lap Sleeve Gastrectomy Dr. Betty TINSLEY Starting weight: 305 lbs 09/02/2020 Lap. assisted [...]
== END ==
LOC: HO.SL 12:36
PROVIDERS: PCP Nurse Practitioner Family; Visit Provider Nurse Practitioner Family
DX: R40.0 Somnolence (principal); R06.83 Snoring
CPT/HCPCS: 95806

== ENCOUNTER → 2024-11-27 13:11 | Outpatient (BNV) | payer MEDICARE, SELFPAY | PROVIDERS: PCP Nurse Practitioner Family; Visit Provider Internal Medicine | DX: R06.83 Snoring (principal) | CPT/HCPCS: 95806 ==

== ENCOUNTER 2024-11-28 13:24 | Outpatient (AMB) | payer MEDICARE, SELFPAY ==
--- OUTSIDE RECORDS SUMMARY | 2024-01-30 05:45 | XMS_ITS ---
Author Organization [facility] Physician Nancy collazo Address [address] [facility] [address] [place] [address] Care Team Providers Care Explosives Handler Name Role Phone Missael saxena Primary Care Provider Jose Sams Unavailable [phone] REASON FOR VISIT 6m fu SOCIAL HISTORY Sex Assigned At : Social History Observation Description Sex Assigned At Female Encounters Encounter Location Date Provider Diagnosis [facility] [address] [place] [address] 01/30/2024 Jose Sams PLAN OF TREATMENT No Information
--- OUTSIDE RECORDS SUMMARY | 2024-02-06 05:40 | XMS_ITS ---
Author Organization [facility] Physician Nancy collazo Address [address] [facility] [address] [place] [address] Care Team Providers Care Greens Or Grounds Superintendent Name Role Phone Missael Pantoja Primary Care Provider ALLERGIES Allergen (clinical drug ingredient) Drug/Non Drug Allergy documented on EMR Reaction Allergy Type Onset Date Status seasonal (uncoded) congestion Allergy Active metronidazole Flagyl itching Drug Allergy Act minna Morphine and Related itching Drug Allergy Active REASON FOR VISIT 6 month f/u SOCIAL HISTORY Sex Assigned At : Social History Observation Description Sex Assigned At Female Section Notes: Planning to move to [place] to be closer to daughter and grandchildren Encounters Encounter Location Date Provider Diagnosis [facility] [address] [place] [address] 02/06/2024 Missael Pantoja PLAN OF TREATMENT No [...] since your last office visit?: No Clinical Supportive Employment Case Manager Documentation Pat ient presents today for: .Six month follow up
--- OUTSIDE RECORDS SUMMARY | 2024-02-06 08:39 | XMS_ITS ---
Author Organization [facility] Physician Nancy collazo Address [address] [facility] [address] [place] [address] Care Team Providers Care Cardiac Technician Name Role Phone Missael Pantoja Primary Care Provider REASON FOR VISIT appt SOCIAL HISTORY Sex Assigned At : Social History Observation Description Sex Assigned At Female Encounters Encounter Location Date Provider Diagnosis [facility] [address] [place] [address] 02/06/2024 Missael Pantoja PLAN OF TREATMENT No Information
--- OUTSIDE RECORDS SUMMARY | 2024-02-23 06:33 | XMS_ITS ---
Author Organization [facility] Physician Nancy collazo Address [address] [facility] [address] [place] [address] Care Team Providers Care Hog Operator Name Role Phone Missael Pantoja Primary Care Provider REASON FOR VISIT Due Ambien CR MEDICATIONS Medication SIG (Take, Route, Frequency, Duration) Notes Start Date End Date Status Ambien CR 12.5 MG 1 tablet at bedtime as needed MDD 1 Orally Once a day at bedtime as needed for sleep for 90 days [id number] CB 02/23/2024 Active SOCIAL HISTORY Sex Assigned At : Social History Observation Description Sex Assigned At Female Encounters Encounter Location Date Provider Diagnosis [facility] [address] [place] [address] 02/23/2024 Missael Pantoja PLAN OF TREATMENT Medication Medication Name Sig Start Date Stop Date Notes Ambien CR 12.5 MG 1 tablet at bedtime as needed MDD 1 Orally Once a day at bedtime as needed for sleep for 90 days 02/23/2024 [id number] C B
--- OUTSIDE RECORDS SUMMARY | 2024-04-06 10:19 | XMS_ITS ---
Author Organization [facility] Physician Nancy collazo Address [address] [facility] [address] [place] [address] Care Team Providers Care Electrical Engineer Mep Name Role Phone Missael Pantoja Primary Care Provider [phone] REASON FOR VISIT RX betamethasone MEDICATIONS Medication SIG (Take, Route, Frequency, Duration) Notes Start Date End Date Status Betamethasone Dipropionate 0.05 % 1 application Externally Twice a day for 5 days 10/24/2023 Active SOCIAL HISTORY Sex Assigned At : Social History Observation Description Sex Assigned At Female Encounters Encounter Location Date Provider Diagnosis [facility] [address] [place] [address] 04/06/2024 Missael Pantoja PLAN OF TREATMENT Medication Medication Name Sig Start Date Stop Date Notes Betamethasone Dipropionate 0.05 % 1 application Externally Twice a day for 5 days 10/24/2023
--- NOTE | 2024-11-28 13:30 | AM.OFFVISMDC ---
Intake Vital Signs 11/28/24 13:52 Height 5 ft 9.5 in Weight 239 lb 4 oz BMI 34.8 BP 110/80 Blood Pressure Location Lt brachial Position Sitting Respiration 12 Pulse 84 Pulse Source Pulse Oximeter Temp 98.6 F Temp Source Temporal Artery Scan Pulse Oximetry (%) 97 Oxygen Delivery Method Room Air Intake Visit Reasons: 30 min Awv, fu lipids/lfts labs 1 week before Intake Note: Sandrita presents in the office today for her medicare wellness and lab follow up. 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 Allergies morphine Allergy (Severe, Verified 11/28/24 14:17) Itching Medication List - Last Reconciled 11/28/24 by Radha Cardona, TELEPHONE ORDER CLERK-BC apixaban (Eliquis) 5 mg PO BID CPAP (CPAP Machine/Device) As directed cyclobenzaprine 5 mg PO TID PRN zolpidem 10 mg PO BEDTIME PRN Post menopausal: Yes Do you need a note to return to daycare/school/sports/work: No HPI HPI Comments History of Present Illness Details 68 y/o F with afib with secondary hypercoaguable disorder, hx of pericarditis, chronic low back pain, JESUS on CPAP, insomnia, caregiver role strain, normal pressure glaucoma , diverticulosis, obesity, MDD, GORDON, Adenocarcinoma of endometrium, grade 1, 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 Colon age 60, repeat age 70. Will do cologaurd in 2025. Dexa 06/2024 Organization (WHO) criteria, the diagnosis is consistent with normal bone mineral density. Mammo 06/2024 WNL PAP s/p SALLY referred to [employer] airspace officer given hx Vaccines: flu 2023, shingles 2021, TDAP 2024, PREVNAR 20 2022 AAA screen: NA EKG: done today, NSR Specialists: Optho Cards Chiro MEDICAL INSURANCE CLAIMS SPECIALIST Pulm Visual Acuity: Glasses, Dr Ojeda in [place], exam 10/2024. Will need new glasses. Hearing Screening: No issues ACP: HCP Y Does not have MOLST or ACP. Forms given today. Dietary/Nutrition/Exercise Edu provided: Y During the course of the visit the patient was educated and counseled about appropriate screening and preventative services. Patient instructions were provided to the patient in written or electronic format. I have reviewed and verified the above information. History of Present Illness - The patient is a 69-year-old female presenting with an annual Medicare wellness visit. - Obstructive sleep apnea, on CPAP therapy. - Hyperlipidemia, uses Abiquiu bergamot, no improvement in LDL, advised to discontinue. - Chronic back pain, exacerbated recently, managed with cyclobenzaprine and ibuprofen. - Insomnia, uses Ambien. Refill sent - PAtrial fibrillation managed with Eliquis. - Interested in HRT. - BPPV is better;met w/ chiro who referred to PT. - GORDON/MDD mood stable. + caregiver role strain - Uterine cancer hx; in remission Social History - Travel plans to [place] due to [employer], brother in law. Health Maintenance - Pneumococcal and shingles vaccinations up-to-date. - COVID vaccine pending availability. - Mammogram and bone density screening completed. - Routine colonoscopy scheduled for age 70, patient opts for Cologuard next year instead. - Tetanus vaccination completed. - A1c was 5.9%, indicating stable blood glucose levels. Review of Systems - Cardiovascular: Denies chest pain, palpitations currently; reports Atrial fibrillation. - Respiratory: Denies shortness of breath; reports Obstructive sleep apnea. - Musculoskeletal: Reports chronic back pain, aggravated by certain positions. - Neurological: Denies dizziness; reports occasional migraines. Patient reports occipital migraine. - Urinary: Denies incontinence. - General: Reports insomnia; denies recent falls. - Endocrine: Discussed hormone replacement therapy. - Gastroenterological: Prefers Cologuard over colonoscopy for screening. - Ophthalmological: Reports glaucoma with regular eye care visits. Physical Exam General: Well developed, well nourished, in no acute distress. Appears stated age. Head: Normocephalic, atraumatic. Eyes: Pupils are equal, round and reactive to light and accommodation. Conjunctivae are clear. Vision grossly normal. Ears: TMs clear R, mild congesion on the L, EACS WNL. Patient reports no hearing problems. Nose: Patent, without discharge. Neck: Supple, no adenopathy or thyromegaly. Breast: Edu on SBE Lungs: Clear to auscultation bilaterally. No rales, rhonchi or wheeze noted. Good air flow in all culp. Heart: Regular rate and rhythm. No murmurs, click, rubs or gallops are noted. Abdomen: Bowel sounds present in all quadrants. The abdomen is soft, nontender, with no masses or organomegaly noted. No hernias are noted. : Deferred. Reviewed recommendations for routine MEDICAL INSURANCE CLAIMS SPECIALIST. Pulses: Peripheral pulses are equal and palpable bilaterally. + varicose veins Extremities: No clubbing, cyanosis nor edema is noted. Neurologic: Gait and station normal. Cranial Nerves 2-12 intact. Motor strength grossly symmetrical and intact. No sensory loss. Balance normal. Skin: No rashes, ulcers, or lesions noted. Turgor is good. Skin color is good. Hair and nails are without abnormalities. Psych: Normal eye contact, affect and mood appropriate, and normal interactions. Patient is alert and appropriate to context. Results - Labs: A1c 5.9%, stable. - Lipid profile: Total cholesterol elevated; outcome with Abiquiu bergamot ineffective. - EKG: Normal sinus rhythm observed. - Vaccination records: Pneumococcal and shingles up-to-date. Discussion Notes I discussed the discontinuation of Abiquiu bergamot due to its ineffectiveness in lowering cholesterol levels. We considered starting Zetia as an alternative for hyperlipidemia management. The patient expressed concerns about hormone replacement therapy, and I proposed a referral to a well-versed medical insurance claims specialist group at [facility] for comprehensive care. We addressed back pain management strategies, particularly the use of ibuprofen while ceasing Eliquis temporarily during exacerbations; emphasized the importance of resuming Eliquis for anticoagulation during flights. Encouraged proceeding with planned Cologuard for colon cancer screening. Reviewed current vaccinations and future flu vaccination plans. Provided anticipatory guidance for air travel and potential back pain during transit. Patient was given time to ask questions. All questions were answered to their satisfaction. Assessment and Plan 1. Obstructive sleep apnea - Maintain CPAP. 2. Hyperlipidemia - Stop Abiquiu bergamot. - Start Zetia 10 mg bedtime. 3. Chronic back pain - Use cyclobenzaprine PRN. - Ibuprofen as needed with Eliquis paused. - FU with Chiro 4. Insomnia - Refill Ambien PRN. 5. Atrial fibrillation - Normal sinus rhythm. - Continue Eliquis monitoring. 6. Hormone therapy - Refer [facility] midwives. 7. ETD on R - start flonase. Remain active w/ care team Patient Instructions - Continue using CPAP every night. - Stop Abiquiu bergamot; start Zetia, taking one pill at bedtime. - Use cyclobenzaprine when back pain gets worse. - If you stop blood thinner while in pain, you can take ibuprofen. - Important to restart blood thinner before flying. - Call [facility] to schedule a hormone assessment appointment. - Perform Cologuard test for colon cancer next year. - Take Flonase twice daily before traveling. - If flying, take low-dose aspirin or switch back to Eliquis before travel. - Notify me of any changes in health. - RTO 6 mo w/ repeat labs for lipids/insomnia. AWV in 1 year. Sooner PRN Consent I discussed with the patient her discontinuation of Abiquiu bergamot and initiation of Zetia for hyperlipidemia. The benefits, risks, and alternatives were reviewed, with consideration that Zetia is a non-statin agent with a different metabolic pathway, reducing possible statin-associated side effects. We agreed upon this treatment plan. The patient consented to referral for specialized hormonal therapy evaluation, provided information on expected follow-up for colon cancer screening with Cologuard in 2025, and agreed to the decision-making process with awareness of potential anticoagulation modifications for travel safety. Patient was informed and verbally consented to the use of an ambient scribe for clinic note documentation during this visit. An additional 30 minutes was spent addressing the problem(s) noted at todays visit. This includes time spent before the visit reviewing the chart, time spent during the visit, and time spent after the visit on documentation PFSH Medical History (Updated 11/28/24 @ 14:51 by [facility]) Afib Kidney stones Lower back pain Menopause Paroxysmal atrial fibrillation Sleep apnea Uterine cancer Surgical History H/O total hysterectomy with bilateral salpingo-oophorectomy (BSO) History of bariatric surgery Hx of dilation and curettage Family History Father Substance abuse Cardiovascular disease Paternal Grandfather Diabetes Mother Hypertension Paternal Grandmother Hypertension Social History (Updated 11/28/24 @ 13:41 by Neda Quiroz MA) Household Members: Family Both parents involved: No Caregiver staying overnight: No Housing: Apartment Are you a primary day care provider to a significant other at home: No Do you presently have visiting nurse or other home services: No 75 years or older and lives alone: No Alcohol intake: current Alcohol intake frequency: a few times a month Patient Tobacco Use Status: Never used Tobacco e-Cigarette/Vaping Use: Never Used Second Hand Smoke Exposure: No service: No Current occupational status: retired Cognitive needs: No Hearing needs: No Vision needs: Yes (wear glasses) Questionnaire Medicare Wellness Checkup What is your age?: 65-69 (69) What gender do you identify with?: female During the past 4 weeks, how much have you been bothered by emotional problems such as feeling anxious, depressed, irritable, sad or downhearted, and blue?: quite a bit During the past 4 weeks, has your physical & emotional health limited your social activities with family, friends, neighbors, or groups?: slightly During the past 4 weeks, how much bodily pain have you generally had?: severe pain During the past 4 weeks, was someone available to help you if you needed & wanted help?: yes, as much as I wanted During the past 4 weeks, what was the hardest physical activity you could do for at least 2 minutes?: moderate (Walking) Can you get to places out of walking distance without help? (For eg., can you travel alone on buses, taxis or drive your car?): Yes Can you go shopping for groceries or clothes without someone's help?: Yes Can you prepare your own meals?: Yes Can you do your housework without help?: Yes Because of any health problems, do you need the help of another person with your personal care needs such as eating, bathing, dressing or getting around the house?: Yes Can you handle your own money without help?: Yes During the past 4 weeks, how would you rate your health in general?: fair (Due to back) During the past 4 weeks how have things been going for you?: pretty well Are you having difficulties driving your car?: no Do you always fasten your seat belt when you are in a car?: yes, usually During past 4 weeks, have you been bothered by the following: never: Sexual problems?, Trouble eating well?, Teeth or denture problems? and Problems using the telephone? and sometimes: Falling or dizzy when standing up and Tiredness or fatigue? Have you fallen 2 or more times in the past year?: No Are you afraid of falling?: No Are you a smoker?: no During the past 4 weeks, how many drinks of wine, beer, or other alcoholic beverages did you have?: no alcohol at all Do you exercise for about 20 minutes 3 or more times a week?: yes, some of the time Have you been given information to help with the following?: no: Hazards in your house that might hurt you? and no: Keeping track of your medications? How often do you have trouble taking medicines the way you have been told to take them?: I always take medicine as prescribed How confident are you that you can control & manage most of your health problems?: very confident What is your race?: White Mini Mental State Exam (MMSE) Orientation What is the (year) (season) (date) (day) (month)?: year, season, date, day and month Where are we (state) (county) (town or city) (hospital) (floor)?: state, county, town or city, hospital/clinic and floor Registration Name of 3 unrelated objects clearly and slowly, then ask patient to repeat all 3 of them. (1st repeat determines score. Make sure they can repeat all three): object 1, object 2 and object 3 Attention & Calculation (CHOOSE ONE) Ask pt to begin with 100 & count backward by 7. Stop after 5 repeats. If pt cannot ask them to spell the word WORLD backward.: 93, 86, 79, 72 and 65 Spell WORLD backwards (DLROW): 5 letters Recall Ask patient to repeat the 3 items from question #3.: object 1, object 2 and object 3 Language Show patient a wristwatch & ask what it is. Repeat for pencil.: watch and pencil Ask the patient to repeat the phrase 'No ifs, ands, or buts' after you.: correct Ask the patient to 'take a piece of paper with their right hand' 'fold paper in half' 'place paper on floor': take paper in right hand, fold paper in half and place paper on floor Print the sentence 'CLOSE YOUR EYES' on a piece. If patient actually closes eyes then score.: followed written direction Give patient a blank piece of paper & ask to write a sentence. Score if it contains a noun & verb.: sentence contains subject and verb Score Score: 34 Activity of Daily Living Bathing - sponge bath, tub bath or shower: receives no assistance (gets in/out by self, if usual bathing means Dressing - getting clothes from closets & drawers, including inner/outer garments & fasteners.: gets clothes & gets completely dressed without help Toileting - going to the 'toilet room' for urine/bowel elimination & cleaning self/arranging clothes: goes to toilet room, cleans self, arranges clothes without help Transfer: moves in & out of bed and chair without help (may use support object) Continence: has occasional 'accidents' Feeding: feeds self without help Total Score: 0 Information obtained from: patient Using telephone: independent Traveling: independent Shopping: independent Preparing meals: independent Housework: independent Taking medicine: independent Managing money: independent PHQ-9 Over the last 2 weeks, how often have you been bothered by any of the following problems? 1. Little interest or pleasure in doing things: more than half the days 2. Feeling down, depressed, or hopeless: several days 3. Trouble falling or staying asleep, or sleeping too much: more than half the days (Falling asleep) 4. Feeling tired or having little energy: several days 5. Poor appetite or overeating: not at all 6. Feeling bad about yourself - or that you are a failure or have let yourself or your family down: not at all 7. Trouble concentrating on things, such as reading the newspaper or watching television: more than half the days 8. Moving or speaking so slowly that other people could have noticed. Or the opposite - being so fidgety or restless that you have been moving around a lot more than usual: not at all 9. Thoughts that you would be better off or of hurting yourself in some way: not at all Total score: 8 Depression Screening Interpretation: Positive Depression Screening Follow-up: Existing condition and Community Mental Health Worker F/U Depression Screening Done: Yes 75276 - PHQ-9 Billing: Yes Source: Developed by Drs. Julito Chen, Prachi Lara, Alexey Lowry and colleagues, with an educational stas from [employer]. Physical Exam Vital Signs: Last Vital Signs Temp 98.6 F 11/28/24 13:52 Pulse 84 11/28/24 13:52 Resp 12 11/28/24 13:52 BP 110/80 11/28/24 13:52 Pulse Ox 97 11/28/24 13:52 Oxygen Delivery Method Room Air 11/28/24 13:52 BMI result Body Mass Index 34.8 Office Procedures Vision Screening 36213 - Vision Screening EKG [id number], Complete Results Reviewed Results Reviewed: Laboratory 11/23/24 Result Units Range Interpretation Provider Comments Sodium Level 141 mmol/L (135-145) Potassium Level 4.1 mmol/L (3.3-5.1) Chloride Level 107 mmol/L (96-108) Carbon Dioxide Level 27 mmol/L (22-29) Anion Gap 11 (12-20) Low Blood Urea Nitrogen 17 mg/dL (9-16) High Creatinine 0.78 mg/dL (0.5-1.4) Estimated Creatinine Clearance Calc Not Reportable Estimat Glomerular Filtration Rate > 60 Random Glucose 93 mg/dL (60-115) Calcium Level 9.5 mg/dL (8.4-10.2) Total Bilirubin 0.4 mg/dL (0.0-1.0) Aspartate Amino Transf (AST/SGOT) 44 U/L (5-31) High Alanine Aminotransferase (ALT/SGPT) 36 U/L (0-31) High Alkaline Phosphatase 74 U/L (39-117) Total Protein 7.1 g/dL (6.5-8.0) Albumin 4.2 g/dL (3.5-5.0) Triglycerides Level 184 mg/dL (<150) High Cholesterol Level 259 mg/dL (<200) High LDL Cholesterol, Calculated 170 mg/dL (<100) High HDL Cholesterol 53 mg/dL (>40) Assessment & Plan Assessment & Plan (1) Encounter for subsequent annual wellness visit (AWV) in Medicare patient: Onset Date: ~11/28/24 Code(s): Z00.00 - Encounter for general adult medical examination without abnormal findings (2) Uterine cancer: Comment: s/p SALLY in [place] (2018) No additional treatments, considered in remission. Code(s): C55 - Malignant neoplasm of uterus, part unspecified Qualifiers: Malignant neoplasm of uterus location: unspecified site of uterus Qualified Code(s): C55 - Malignant neoplasm of uterus, part unspecified (3) Menopause: Comment: 06/2024 Organization (WHO) criteria, the diagnosis is consistent with normal bone mineral density. Code(s): Z78.0 - Asymptomatic menopausal state (4) Encounter for well woman exam with routine gynecological exam: Code(s): Z01.419 - Encounter for gynecological examination (general) (routine) without abnormal findings (5) Counseling for hormone replacement therapy: Code(s): Z71.89 - Other specified counseling (6) HLD (hyperlipidemia): Code(s): E78.5 - Hyperlipidemia, unspecified Qualifiers: Hyperlipidemia type: mixed hyperlipidemia Qualified Code(s): E78.2 - Mixed hyperlipidemia (7) ACP (advance care planning): Code(s): Z71.89 - Other specified counseling (8) JESUS on CPAP: Code(s): G47.33 - Obstructive sleep apnea (adult) (pediatric) (9) GORDON (generalized anxiety disorder): Code(s): F41.1 - Generalized anxiety disorder (10) Paroxysmal atrial fibrillation: Comment: Paroxysmal atrial fibrillation in this elderly woman with prior history with intermittent symptoms of palpitation which could represent AFib. I have suggested her to invest in a smart phone based EKG device. This will help us confirm presence of atrial fibrillation. Although she currently he is not symptomatic enough with no life-limiting symptoms should require further therapy although I think she would benefit from rhythm control approach.CHADSVASc score of 2-3. I would continue full oral anticoagulation, currently on Eliquis which she has tolerated. Semi annual renal function test should be pursued. Avoidance of stimulants was discussed. Encouraged to continue use CPAP therapy which she has. Also continue participate in weight loss program. Will update echocardiogram to assess for LV systolic and diastolic function more importantly to assess for biatrial chamber size level guide anticoagulation and management of atrial fibrillation in the future. She is encouraged to maintain activity level as tolerated. Code(s): I48.0 - Paroxysmal atrial fibrillation (11) MDD (major depressive disorder), recurrent episode: Code(s): F33.9 - Major depressive disorder, recurrent, unspecified Qualifiers: Major depression episode severity: mild Qualified Code(s): F33.0 - Major depressive disorder, recurrent, mild (12) History of type 2 diabetes mellitus: Code(s): Z86.39 - Personal history of other endocrine, nutritional and metabolic disease (13) S/P gastric bypass: Code(s): Z98.84 - Bariatric surgery status (14) BPPV (benign paroxysmal positional vertigo): Code(s): H81.10 - Benign paroxysmal vertigo, unspecified ear Qualifiers: Laterality: bilateral Qualified Code(s): H81.13 - Benign paroxysmal vertigo, bilateral (15) Normal pressure glaucoma: Code(s): H40.1290 - Low-tension glaucoma, unspecified eye, stage unspecified Qualifiers: Glaucoma stage: stage unspecified Laterality: bilateral Qualified Code(s): H40.1230 - Low-tension glaucoma, bilateral, stage unspecified (16) Elevated LFTs: Code(s): R79.89 - Other specified abnormal findings of blood chemistry (17) Chronic low back pain: Code(s): M54.50 - Low back pain, unspecified; G89.29 - Other chronic pain Qualifiers: Back pain laterality: midline Sciatica presence: without sciatica Qualified Code(s): M54.50 - Low back pain, unspecified; G89.29 - Other chronic pain (18) Insomnia: Code(s): G47.00 - Insomnia, unspecified Qualifiers: Insomnia type: psychophysiologic Qualified Code(s): F51.04 - Psychophysiologic insomnia (19) Acute dysfunction of left eustachian tube: Code(s): H69.92 - Unspecified Eustachian tube disorder, left ear Plan . Orders: Orders AMB Hemoglobin A1c 11/28/24 Z13.9 - Encounter for screening, unspecified Comprehensive Met. Panel 6 Months E78.2 - Mixed hyperlipidemia AMB Vision Screening 11/28/24 Z13.9 - Encounter for screening, unspecified Lipid Panel 6 Months E78.2 - Mixed hyperlipidemia Referrals PER DIEM PHYSICAL THERAPIST Referral C55 - Malignant neoplasm of uterus, part unspecified, Z01.419 - Encounter for gynecological examination (general) (routine) without abnormal findings, Z71.89 - Other specified counseling, Z78.0 - Asymptomatic menopausal state Medications: New ezetimibe (Zetia) 10 mg PO DAILY 90 tabs 2RF latanoprost 0.005% 1 drp ophthalmic (eye) DAILY fluticasone propionate 50 mcg/actuation administer into each nostril 1 spray intranasal BID 16 grams 12RF Refilled cyclobenzaprine 5 mg PO TID PRN 30 tabs 2RF muscle spasm zolpidem 10 mg PO BEDTIME PRN 30 tabs 2RF sleep Patient Instructions: Health screenings for women You should visit your health care provider from time to time, even if you are healthy. The purpose of these visits is to: Screen for medical issues Assess your risk for future medical problems Encourage a healthy lifestyle Update vaccinations and other preventive care services Help you get to know your provider in case of an illness Information Even if you feel fine, you should still see your provider for regular checkups. These visits can help you avoid problems in the future. For example, the only way to find out if you have high blood pressure is to have it checked regularly. High blood sugar and high cholesterol levels also may not have any symptoms in the early stages. A simple blood test can check for these conditions. There are specific times when you should see your provider or receive specific health screenings. The [place] Preventive Services Task Force publishes a list of recommended screenings. Below are screening guidelines for women ages 18 to 39. BLOOD PRESSURE SCREENING Your blood pressure should be checked at least once every 3 to 5 years if: Your blood pressure is in the normal range (top number less than 120 mm Hg and bottom number less than 80 mm Hg) You don't have risk factors for high blood pressure Ask your provider if you need your blood pressure checked more often if: The top number is 120 to 129 mm Hg or the bottom number is 70 to 79 mm Hg You have diabetes, heart disease, kidney problems, are overweight, or have certain other health conditions You have a first-degree relative with high blood pressure You are Black You had high blood pressure during a If the top number is 130 mm Hg or greater or the bottom number is 80 mm Hg or greater, this is considered stage 1 hypertension. Schedule an appointment with your provider to learn how you can reduce your blood pressure. Watch for blood pressure screenings in your area. Ask your provider if you can stop in to have your blood pressure checked. BREAST CANCER SCREENING Experts do not agree about the benefits of breast self-exams in finding breast cancer or saving lives. Talk to your provider about what is best for you. A screening mammogram is not recommended for most women under age 40. Your provider may discuss and recommend mammograms, MRI scans, or ultrasounds if you have an increased risk for breast cancer, such as: A mother or sister who had breast cancer at a young age (most often starting screening earlier than the age the close relative was diagnosed) You carry a high-risk genetic marker CERVICAL CANCER SCREENING Cervical cancer screening should start at age 21 years unless your provider advises otherwise. After the first test: Women ages 21 through 29 should have a Pap test every 3 years. Exoprts do not agree on whether HPV testing is recommended for this age group. Women ages 30 through 65 should be screened with either a Pap test every 3 years or the HPV test every 5 years or both tests every 5 years (called cotesting ). Women who have been treated for precancer (cervical dysplasia) should continue to have Pap tests for 20 years after treatment or until age 65, whichever is longer. If you have had your uterus and cervix removed (total hysterectomy), and you have not been diagnosed with cervical cancer or precancer (high grade cervical neoplasia), you do not need cervical cancer screening. CHOLESTEROL SCREENING Cholesterol screening should begin at: Age 45 for women with no known risk factors for coronary heart disease Age 20 for women with known risk factors for coronary heart disease Repeat cholesterol screening should take place: Every 5 years for women with normal cholesterol levels More often if changes occur in lifestyle (including weight gain and diet) More often if you have diabetes, heart disease, kidney problems, or certain other conditions DIABETES SCREENING You should be screened for diabetes starting at age 35 and then repeated every 3 years if you have no risk factors for diabetes. Screening may need to start earlier and be repeated more often if you have other risk factors for diabetes, such as: You have a first degree relative with diabetes. You are overweight or have obesity. You have high blood pressure, prediabetes, or a history of heart disease. Screening for diabetes should be done if you are planning to become and you are overweight and have other risk factors such as high blood pressure. DENTAL EXAM Go to the dentist once or twice every year for an exam and cleaning. Your dentist will evaluate if you need more frequent visits. EYE EXAM Have an eye exam every 5 to 10 years before age 40. If you have vision problems, have an eye exam every 2 years or more often if recommended by your provider. You should have an eye exam that includes an examination of your retina (back of your eye) at least every year if you have diabetes. IMMUNIZATIONS Commonly needed vaccines include: Flu shot: get one every year. COVID-19 vaccine: ask your provider what is best for you. Tetanus-diphtheria and acellular pertussis (Tdap) vaccine: have one at or after age 19 as one of your tetanus-diphtheria vaccines if you did not receive it as an adolescent. Tetanus-diphtheria: have a booster (or Tdap) every 10 years. Varicella vaccine: receive 2 doses if you never had chickenpox or the varicella vaccine. Hepatitis B vaccine: receive 2, 3, or 4 doses, depending on your exact circumstances. Measles, mumps, and rubella (MMR) vaccine: receive 1 to 2 doses if you are not already immune to MMR. Your provider can tell you if you are immune. Ask your provider about the human papillomavirus (HPV) vaccine if: You have not received the HPV vaccine in the past You have not completed the full vaccine series (you should catch up on this shot) Ask your provider if you should receive other immunizations if you have certain health problems that increase your risk for some diseases such as pneumonia. INFECTIOUS DISEASE SCREENING Women who are sexually active should be screened for chlamydia and gonorrhea up until age 25. Women 25 years and older should be screened for chlamydia and gonorrhea if at high risk. Screening for hepatitis C: All adults ages 18 to 79 should get a one-time test for hepatitis C. people should be screened at every . Screening for human immunodeficiency virus (HIV): All people ages 15 to 65 should get a one-time test for HIV. Depending on your lifestyle and medical history, you may also need to be screened for infections such as syphilis and HIV, as well as other infections. PHYSICAL EXAM All adults should visit their provider from time to time, even if they are healthy. The purpose of these visits is to: Screen for disease Assess your risk of future medical problems Encourage a healthy lifestyle Update your vaccinations and other preventive care services Maintain a relationship with a provider in case of an illness Your height, weight, and BMI should be checked at every exam. During your exam, your provider may ask you about: Depression and anxiety Diet and exercise Alcohol and tobacco use Safety issues, such as using seat belts, smoke detectors, and intimate partner violence Your medicines and risk for interactions SKIN SELF-EXAM Your provider may check your skin for signs of skin cancer, especially if you're at high risk, such as if you: Have had skin cancer before Have close relatives with skin cancer Have a weakened immune system OTHER SCREENING Talk with your provider about colon cancer screening if you have a strong family history of colon cancer or polyps, or if you have had inflammatory bowel disease or polyps yourself. Routine bone density screening of women under 40 is not recommended. Quality Reporting (2019) Adult ([facility] 138/05/12/68) Smoking risk assessment performed?: Yes Patient Tobacco Use Status: Never used Tobacco Depression screening performed: Yes Screen Results: Yes Positive screen Positive Screen Plan: Yes additional evaluation for depression Systolic BP not done?: No Diastolic BP not done?: No BMI screening not done: No BMI High - Follow Up: Yes High-plan Sexual Activity Screening ([facility] 153) Sexually active?: No Immunizations ([facility] 147, 117) Annual Influenza Vaccine: Yes Measles Antibody Test: No Mumps Antibody Test: No Rubella Antibody Test: No Varicella Antibody Test: No Anti Hepatitis A IgG Antigen test: No Anti Hepatitis B Virus Surface Ab test: No Fall Risk Screening ([facility] 139) Last assessed Fall Risk: 11/28/24 Fall risk assessment: No Falls in past year Dementia Assessment ([facility] 149) Cognitive assessment recorded: Yes Assessment of cognition with standardized tool: Yes Depression/Bipolar (159/160/161/177) PHQ-9: Total score: 8 Ophthalmol:Cataracts Visual Acuity (133) Visual acuity exam performed: Yes (see results ) Coding Level of Care Code Medicare Subsequent (G0439) Est Pt Level 4 (86142) Diagnoses Encounter for subsequent annual wellness visit (AWV) in Medicare patient Z00.00 Malignant neoplasm of uterus, unspecified site C55 Malignant neoplasm of uterus location: unspecified site of uterus Menopause Z78.0 Encounter for well woman exam with routine gynecological exam Z01.419 Counseling for hormone replacement therapy Z71.89 Mixed hyperlipidemia E78.2 Hyperlipidemia type: mixed hyperlipidemia ACP (advance care planning) Z71.89 JESUS on CPAP G47.33 GORDON (generalized anxiety disorder) F41.1 Paroxysmal atrial fibrillation I48.0 Mild episode of recurrent major depressive disorder F33.0 Major depression episode severity: mild History of type 2 diabetes mellitus Z86.39 S/P gastric bypass Z98.84 Benign paroxysmal positional vertigo due to bilateral vestibular disorder H81.13 Laterality: bilateral Low-tension glaucoma of both eyes, unspecified glaucoma stage H40.1230 Glaucoma stage: stage unspecified Laterality: bilateral Elevated LFTs R79.89 Chronic midline low back pain without sciatica M54.50; G89.29 Back pain laterality: midline Sciatica presence: without sciatica Psychophysiological insomnia F51.04 Insomnia type: psychophysiologic Acute dysfunction of left eustachian tube H69.92 CPT Codes Advance Care Planning - Time spent: 1-15 minutes, not on file ([id number]) Vision Screening - Vision Screenin - Vision Screening ([id number]) EKG - CPT: 49002-Ubfyhjlqsxbiebyja, Complete ([id number]) Additional Codes PHQ-9 - 50901 - PHQ-9 Billing: Yes ([id number]) Advance Care Planning Advance Care Planning discussion: Exists, not on file Date of discussion: 11/28/24 Forms completed: Health Care Proxy, MOLST and Living will Time spent: 1-15 minutes, not on file Actual minutes spent: 5
[2024-11-28 13:52] VITALS: BP 110/80; PULSE 84; RESP 12; TEMP 37; O2SAT 97; BMI 34.8
--- OUTSIDE RECORDS SUMMARY | 2024-11-28 16:28 | XMS_ITS | Clinical Summary ---
Author Organization [facility] Address [address] [place] [address] Phone Care Team Providers Care Weed Science Research Technician Name Role Phone Radha Orourke BAKER HEAD Primary Care Provider Encounters Date Type Department Care Team Description 11/06/2024 3:45 PM EDT Office Visit [facility] [address] [place] [address] [place] [address] Radha Orourke, José Luis Pena, PT Vertigo (Primary Dx) 10/29/2024 3:45 PM EDT Office Visit [facility] [address] [place] [address] [place] [address] Radha Orourke NP Bell, Ross, PT Vertigo (Primary Dx) 10/29/2024 Plan of Care Documentation [facility] [address] [place] [address] [place] [address] 10/23/2024 Transcribe Orders [facility] [address] [place] [address] [place] [address] Radha Orourke NP Encounter for rehabilitation (Primary [...] PPO BLUE REPLACEMENT MEDICARE PPO BLUE REPLACEMENT [id number] MEDICARE PPO BLUE REPLACEMENT MEDICARE PPO BLUE REPLACEMENT MEDICARE PPO BLUE REPLACEMENT Care Teams Weed Science Research Technician Relationship Specialty Start Date End Date Radha Orourke NP [address] [place] [id number] [email or web address] PCP - General 10/23/24 Additional Source Comments The information contained in this document represents components of the legal health record. It is not the complete legal health record.[facility]
--- OUTSIDE RECORDS SUMMARY | 2024-11-28 16:29 | XMS_ITS | Patient Health Record ---
Author Organization [facility] Physician Nancy collazo Address [address] [place] [address] Care Team Providers Care Hand Tool Filer Name Role Phone Robbinnieves Missael Primary Care Provider [phone] Jose Sams Unavailable [phone] Chana Ridlye Unavailable [phone] ALLERGIES Allergen (clinical drug ingredient) Drug/Non Drug [...] as needed for sleep for 90 days [id number] CB 02/23/2024 Active Calcium 500 MG 2 [...] Hypothyroidism, unspecified (E03.9) Active confirmed Hypothyr oidism (24379355) Problem Type 2 diabetes mellitus with hyperglycemia (E11.65) Active confirmed 68608278 Problem Mixed hyperlipidemia (E78.2) Active confirmed 455194571 Problem Metabolic syndrome (E88.81) Active confirmed Metabolic syndrome (961147541) Problem Primary insomnia (F51.01) Active confirmed 0490289 Problem Other chronic pain (G89.29) Active confirmed 16086075 Problem Paresthesia of skin (R20.2) Active confirmed 17266530 Problem Bariatric surgery status (Z98.84) Active confirmed 881053193 Problem Vitamin D deficiency (E55.9) Active confirmed 89681956 Problem Essential hypertension (I10) Active confirmed Essential hypertension (40020953) Problem Hyperthyroidism (E05.90) Active confirmed 19589748 Problem Dyslipidemia (E78.5) Active confirmed 648641425 Problem Obesity (BMI 30-39.9) (E66.9) Active confirmed 152713461 Problem JESUS (obstructive sleep apnea) (G47.33) Active confirmed 55120839 Problem Gastroesophageal reflux disease without esophagitis (K21.9) Active confirmed 826919909 Problem Arrhythmia (I49.9) Active confirmed Arr hythmia (343209985) Problem Atrial flutter (I48.92) Active confirmed Atrial flutter (5428551) Problem AF (atrial fibrillation) (I48.91) Active confirmed Atrial fibrillation (95959457) Problem Dysthymia (F34.1) Active confirmed 7866 7006 Problem BMI 32.0-32.9,adult (Z68.32) Active confirmed BMI 30+ - obesity (659822878) Problem BMI 33.0-33.9,adult (Z68.33) Active confirmed Obese class I (152127095761522 ) Problem BMI 31.0-31.9,adult (Z68.31) Active confirmed Body mass index 30.00 to 34.99 (108135593878671 ) Problem Migraine, unspecified (G43.909) Active confirmed Migraine (13414541) Problem 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) Active confirmed 085281931 Problem Elevated lymphocytes (D72.820) Active confirmed 09328894 Encounters Encounter Location Date Provider Diagnosis [facility] [address] [place] [id number] 01/27/2024 Jose Sams [facility] [address] [address] 02/06/2024 Missael Pantoja [facility] [address] [address] 02/23/2024 Missaelsanta Pantoja [facility] [address] [address] 04/06/2024 Missael Scarlett [facility] [address] [place] [address] 12/05/2023 Chana Ridley [facility] [address] [address] 02/06/2024 Missael Pantoja [facility] [address] [place] [address] 01/30/2024 Jose Sams PLAN OF TREATMENT Pending [...] DENSITY with Fracture Assessment COVID-19 PCR,REF 1 [facility] 08/28/2020 Spirometry 04/22/2022 Erythrocyte Sedimentation Rate - Automat ed 03/17/2022 Erythrocyte Sedimentation Rate - Automat ed 05/06/2022 Vitamin B12/Folate Level 10/13/2021 CBC - Complete Blood Count with Auto Dif f 10/13/2021 CMP - Comprehensive Metabolic Panel 09/19 Ferritin Level 10/13/2021 Iron and Iron Binding Capacity Vitamin D 25 Hydroxy 10/13/2021 Vitamin A Level,REF 1 [facility] 10/13/2021 Vitamin B1(Thiamine) Level,REF 1 [facility] Future Test Test Name Order [...] End Date MEDICARE BLUE PPO [address] [address] [place] [phone] [id number] Sandrita Lemons Self - patient is the [...]
== END 2024-11-28 14:48 | disposition home or self-care (01) ==
LOC: HO.HMCFM 13:25
PROVIDERS: PCP Nurse Practitioner Family; Visit Provider Nurse Practitioner Family
DX: Z00.00 Encounter for general adult medical examination without abnormal findings (principal); I48.0 Paroxysmal atrial fibrillation; C55 Malignant neoplasm of uterus, part unspecified; E78.2 Mixed hyperlipidemia; Z78.0 Asymptomatic menopausal state; Z71.89 Other specified counseling; G47.33 Obstructive sleep apnea (adult) (pediatric); F41.1 Generalized anxiety disorder; F33.0 Major depressive disorder, recurrent, mild; Z86.39 Personal history of other endocrine, nutritional and metabolic disease; Z98.84 Bariatric surgery status

== ENCOUNTER → 2024-11-28 13:24 | Outpatient (BNVA) | payer MEDICARE, SELFPAY | PROVIDERS: PCP Nurse Practitioner Family; Visit Provider Nurse Practitioner Family | DX: Z00.00 Encounter for general adult medical examination without abnormal findings (principal); E78.2 Mixed hyperlipidemia; G47.33 Obstructive sleep apnea (adult) (pediatric); F41.1 Generalized anxiety disorder; I48.0 Paroxysmal atrial fibrillation; F33.0 Major depressive disorder, recurrent, mild; H81.13 Benign paroxysmal vertigo, bilateral; H40.1230 Low-tension glaucoma, bilateral, stage unspecified; R79.89 Other specified abnormal findings of blood chemistry; M54.50 Low back pain, unspecified; G89.29 Other chronic pain; F51.04 Psychophysiologic insomnia; H69.92 Unspecified Eustachian tube disorder, left ear; Z85.42 Personal history of malignant neoplasm of other parts of uterus; Z78.0 Asymptomatic menopausal state; Z79.01 Long term (current) use of anticoagulants; Z79.899 Other long term (current) drug therapy; Z86.39 Personal history of other endocrine, nutritional and metabolic disease; Z90.710 Acquired absence of both cervix and uterus; Z98.84 Bariatric surgery status; Z71.89 Other specified counseling; Z99.89 Dependence on other enabling machines and devices | CPT/HCPCS: 83036; 93005; 96127; 99212 ==

== ENCOUNTER 2024-12-28 12:50 | Outpatient (AMB) | payer MEDICARE, SELFPAY ==
--- NOTE | 2024-12-28 12:53 | MHC.OFFVIS ---
Vital Signs 12/28/24 13:01 Height 5 ft 9.5 in BMI Reason not done Patient refused/unable BP 118/80 Blood Pressure Location Rt brachial Pulse 66 Pulse Source Pulse Oximeter Pulse Oximetry (%) 97 Oxygen Delivery Method Room Air Intake Visit Reasons: Obstructive sleep apnea Allergies morphine Allergy (Severe, Verified 12/28/24 13:04) Itching HPI HPI Obstructive sleep apnea: Details: Sandrita is a pleasant 69 year female, never smoker, with underlying JESUS on CPAP, Atrial Fibrillation on Eliquis, DMII, HLD, and h/o pericarditis. Prior sleep study from 7+ years ago reportedly revealed moderate sleep apnea and and has been using CPAP therapy for 10-15 years with good effect, unknown pressures, denies supplemental oxygen. She does note significant weight loss s/p bariatic surgery since last sleep study and in need of new machine. She has been reportedly compliant and benefitting from use, preferring nasal mask. DME was [facility] in [place] and would like to continue with them at this time. Today she presents to review home sleep study results. At this time, she denies any respiratory symptoms. COUNT INCLUDES THE [facility] Medical History (Updated 11/28/24 @ 14:51 by BALA Roca-) Paroxysmal atrial fibrillation Afib Lower back pain Sleep apnea Menopause Kidney stones Uterine cancer Surgical History H/O total hysterectomy with bilateral salpingo-oophorectomy (BSO) Hx of dilation and curettage History of bariatric surgery Family History Father Substance abuse Cardiovascular disease Paternal Grandfather Diabetes Mother Hypertension Paternal Grandmother Hypertension Social History Household Members: Family Both parents involved: No Caregiver staying overnight: No Housing: Apartment Are you a primary child care education coordinator to a significant other at home: No Do you presently have visiting nurse or other home services: No 75 years or older and lives alone: No Alcohol intake: current Alcohol intake frequency: a few times a month Patient Tobacco Use Status: Never used Tobacco e-Cigarette/Vaping Use: Never Used Second Hand Smoke Exposure: No service: No Current occupational status: retired Cognitive needs: No Hearing needs: No Vision needs: Yes (wear glasses) Review of Systems Const Denies chills, Denies excessive sweating, Denies fever(s), Denies headache(s) and Denies night sweats Eyes Denies dry eyes, Denies irritation and Denies itchy eyes ENT Reports Normal hearing present, Denies headache(s), Denies nasal congestion, Denies nasal discharge, Denies post nasal drip and Denies sore throat Card Denies chest pain, Denies chest pain at rest, Denies chest pain with activity, Denies claudication, Denies leg edema, Denies dyspnea, Denies dyspnea on exertion, Denies orthopnea and Denies paroxysmal nocturnal dyspnea Resp Denies chest congestion, Denies cough, Denies excessive phlegm production, Denies pain on inspiration, Denies pain with cough, Denies dyspnea, Denies dyspnea on exertion, Denies stridor and Denies wheezing Musc Denies myalgias Neuro Reports Normal hearing present and Denies headache(s) Endo Denies excessive sweating Oniel/Lymph Denies lymphadenopathy Aller/Immun Denies itchy eyes, Denies seasonal rhinorrhea and Denies wheezing Physical Exam Vital Signs: Last Vital Signs Pulse 66 12/28/24 13:01 BP 118/80 12/28/24 13:01 Pulse Ox 97 12/28/24 13:01 Oxygen Delivery Method Room Air 12/28/24 13:01 Const General: cooperative, healthy appearing, comfortable, no acute distress, well developed and alert Nutritional Appearance: obese Orientation/consciousness: patient oriented x3 Limitations: no limitations HEENT Head: Yes normal to inspection, Yes normocephalic and Yes atraumatic Ears: hearing grossly normal bilaterally and external ears normal Eyes General: appearance normal, both eyes and all related structures Eyelids: Yes eyelids normal Sclerae: sclerae normal EOM: EOMs intact bilaterally Neck Neck: Yes normal visual inspection and Yes no lymphadenopathy Lymphatic: no lymphadenopathy noted Chest Chest palpation & inspection: normal inspection of the chest Resp Effort & Inspection: normal respiratory effort, able to speak in complete sentences, no audible wheezes, no cough, no stridor, not tachypneic, no tripod positioning and no use of accessory muscles Auscultation: clear to auscultation bilaterally Cardio Jugular venous distension: no JVD Rate: regular rate Rhythm: regular rhythm Skin Other: warm, dry General skin exam: no rashes or lesions noted Neuro General: patient oriented x3 Cranial nerves: Yes Normal hearing present Cognition (Neuro): normal cognition Gait exam (Neuro): Normal gait present Extrem General: Yes normal to inspection, Yes capillary refill normal, Yes no clubbing, cyanosis or edema and Yes no pedal edema Psych Appearance: grossly normal and well kempt Speech and movement: Normal speech and movement present and Clear speech present Affect: normal affect Attitude: cooperative Thought process: Normal thought process present Thought content: Normal thought content present Insight: Good insight present (Psych) Judgement: Good judgement present (Psych) Assessment & Plan Assessment & Plan (1) JESUS on CPAP: Code(s): G47.33 - Obstructive sleep apnea (adult) (pediatric) Category: Medical Plan Prior sleep study from 7+ years ago reportedly revealed moderate JESUS and since then patient has lost a significant amount of weight and was sent for updated sleep study. Reviewed home sleep study which was negative for JESUS, AHI 0.9 with no nocturnal hypoxemia, average oxygen saturation 95%. Discussed potentially sending for in lab sleep study versus trialing offer current CPAP given recent findings. She was agreeable to trial off of CPAP therapy if symptoms suggestive of JESUS recur then will consider in lab titration study. At this time she denies any respiratory symptoms. All questions were answered and patient is in agreement of plan. Will follow-up to review results or sooner if needed. Coding Level of Care Code Est Pt Level 4 (88164) Diagnoses JESUS on CPAP G47.33
[2024-12-28 13:01] VITALS: BP 118/80; PULSE 66; O2SAT 97
== END 2024-12-28 13:57 | disposition home or self-care (01) ==
LOC: HO.HPSW 12:51
PROVIDERS: PCP Nurse Practitioner Family; Visit Provider Nurse Practitioner Family
DX: G47.33 Obstructive sleep apnea (adult) (pediatric) (principal)
CPT/HCPCS: 99214

== ENCOUNTER → 2024-12-28 12:50 | Outpatient (BNVA) | payer MEDICARE, SELFPAY | PROVIDERS: PCP Nurse Practitioner Family; Visit Provider Nurse Practitioner Family | DX: Z71.2 Person consulting for explanation of examination or test findings (principal); G47.33 Obstructive sleep apnea (adult) (pediatric) | CPT/HCPCS: 99212 ==